=== PATIENT | male | born 1970 | race Caucasian/White ===

== ENCOUNTER → 2016-06-20 | Outpatient (CLI) | payer OTHER ==
[2016-06-20 10:59] LABS: ALT/SGPT 144 U/L (12-78); BLOOD UREA NITROGEN 12 mg/dl (7-18); BUN/CREATININE RATIO 11.1 (10-20); CARBON DIOXIDE 24 mmol/L (21-32); CHLORIDE 104 mmol/L (98-107); CHOLESTEROL 131 mg/dl (0-200); GLUCOSE 168 mg/dl (70-99); POTASSIUM 4.4 mmol/L (3.5-5.1); SODIUM 139 mmol/L (136-145); TRIGLYCERIDES 148 mg/dl (0-150); VERY LOW DENSITY LIPOPROT CALC 30 mg/dl
[2016-06-20 11:02] LABS: ALB/GLOB RATIO 1.3 (0.9-2); ALKALINE PHOSPHATASE 53 U/L (45-117); AST/SGOT 103 U/L (15-37); CALCIUM 9.8 mg/dl (8.5-10.1); CHOLESTEROL/HDL RATIO 3.4; HDL CHOLESTEROL 39 mg/dl; LDL CHOLESTEROL CALCULATED 62 mg/dl
== END | disposition home or self-care (01) ==
LOC: C.LABBC 07:43
PROVIDERS: ATTEND Family Medicine
DX: R74.0 Nonspecific elevation of levels of transaminase and lactic acid dehydrogenase [LDH] (principal); I10 Essential (primary) hypertension; E78.5 Hyperlipidemia, unspecified

== ENCOUNTER → 2016-09-02 | Outpatient (CLI) | payer OTHER ==
[2016-09-02 11:42] LABS: ALT/SGPT 68 U/L (12-78); AST/SGOT 39 U/L (15-37); BLOOD UREA NITROGEN 20 mg/dl (7-18); BUN/CREATININE RATIO 18.4 (10-20); CALCIUM 9.2 mg/dl (8.5-10.1); CARBON DIOXIDE 27 mmol/L (21-32); CHLORIDE 104 mmol/L (98-107); GLUCOSE 159 mg/dl (70-99); POTASSIUM 4.4 mmol/L (3.5-5.1); SODIUM 139 mmol/L (136-145)
[2016-09-02 11:44] LABS: ALB/GLOB RATIO 1.2 (0.9-2); ALKALINE PHOSPHATASE 49 U/L (45-117)
[2016-09-02 11:53] LABS: ESTIMATED AVERAGE GLUCOSE 160 mg/dl; HA1C FLAG Normal (Normal)
== END | disposition home or self-care (01) ==
LOC: C.LABBC 07:35
PROVIDERS: ATTEND Physician Assistant
DX: R74.0 Nonspecific elevation of levels of transaminase and lactic acid dehydrogenase [LDH] (principal); E11.29 Type 2 diabetes mellitus with other diabetic kidney complication

== ENCOUNTER → 2017-02-01 | Outpatient (CLI) | payer OTHER ==
[2017-02-01 15:43] LABS: ALT/SGPT 215 U/L (12-78); AST/SGOT 162 U/L (15-37); BLOOD UREA NITROGEN 12 mg/dl (7-18); BUN/CREATININE RATIO 12.4 (10-20); CALCIUM 8.9 mg/dl (8.5-10.1); CARBON DIOXIDE 26 mmol/L (21-32); CHLORIDE 101 mmol/L (98-107); CREATININE 0.94 mg/dl (0.60-1.40); GLUCOSE 228 mg/dl (70-99); POTASSIUM 4.6 mmol/L (3.5-5.1); SODIUM 133 mmol/L (136-145)
[2017-02-01 15:46] LABS: ALB/GLOB RATIO 1.1 (0.9-2); ALKALINE PHOSPHATASE 68 U/L (45-117); CHOLESTEROL 159 mg/dl (0-200); HDL CHOLESTEROL 32 mg/dl; LDL CHOLESTEROL CALCULATED 70 mg/dl; TRIGLYCERIDES 285 mg/dl (0-150); VERY LOW DENSITY LIPOPROT CALC 57 mg/dl
[2017-02-01 15:48] LABS: CREATININE RANDOM URINE 78.9 mg/dl
[2017-02-02 06:40] LABS: ESTIMATED AVERAGE GLUCOSE 206 mg/dl; HA1C FLAG Normal (Normal)
== END | disposition home or self-care (01) ==
LOC: C.LABBC 09:44
PROVIDERS: ATTEND Physician Assistant Medical
DX: Z00.00 Encounter for general adult medical examination without abnormal findings (principal); E11.29 Type 2 diabetes mellitus with other diabetic kidney complication; E78.5 Hyperlipidemia, unspecified; R06.09 Other forms of dyspnea

== ENCOUNTER → 2017-10-05 | Outpatient (CLI) | payer OTHER ==
[~2017-10-05] MED LIST: AMLO10TA3 PO; AMR2 PO; CEPH500C PO; GLC/500 PO; HYZ/50125 PO
[2017-10-05 11:05] LABS: ALBUMIN 4.1 gm/dl (3.4-5.0); ALKALINE PHOSPHATASE 92 U/L (45-117); ALT/SGPT 103 U/L (12-78); AST/SGOT 41 U/L (15-37); BLOOD UREA NITROGEN 10 mg/dl (7-18); CALCIUM 9.1 mg/dl (8.5-10.1); CARBON DIOXIDE 24 mmol/L (21-32); CREATININE 1.08 mg/dl (0.60-1.40); GLUCOSE 231 mg/dl (70-99); POTASSIUM 4.2 mmol/L (3.5-5.1); SODIUM 133 mmol/L (136-145); TOTAL PROTEIN 7.9 gm/dl (6.4-8.2)
[2017-10-05 11:07] LABS: HEMOGLOBIN A1C 8.7 % (4.5-5.6)
== END | disposition home or self-care (01) ==
LOC: C.LABBC 08:19
PROVIDERS: ATTEND Physician Assistant Medical
DX: Z00.00 Encounter for general adult medical examination without abnormal findings (principal); I10 Essential (primary) hypertension; R74.0 Nonspecific elevation of levels of transaminase and lactic acid dehydrogenase [LDH]; E11.29 Type 2 diabetes mellitus with other diabetic kidney complication

== ENCOUNTER 2018-10-13 09:13 | Inpatient (IN) ==
[2018-10-13] MEDS ORDERED: PIPERACILLIN/TAZOBACTAM 4.5 GM/120 ML BAG IV ONE (10:01)
[2018-10-13] MEDS ORDERED: PIPERACILL/TAZOBAC CONSULT ACTIVE PRN ×2 (10:01→14:19)
--- NOTE | 2018-10-13 10:05 | Emergency Department Note ---
Entered by Celina Parr acting as a scribe for Ming Mcclellan DO History of Present Illness General Chief complaint: Toe Injury/Pain Stated complaint: TOE INFECTED Source: patient History of Present Illness Onset (ago): week(s) 1 Location: foot (left second toe) Pain Consistency: + other (persistent) Maximum Pain Intensity: 2 Quality: + other (redness, drainage) Relieved By: not by other (wrapping in gauze) The patient is a 48 year old male with a history of diabetes and hypertension that is presenting to the Emergency Room with complaints of persistent pain in the left second toe that started around one week ago. The patient reports that he dropped something on his toe while wearing sneakers. He states that the toe turned red and started to drain around the toenail. He denies receiving any treatment for the toe or taking any antibiotics. He notes that he wrapped the toe in gauze. The patient states that he thought it was improving but notes that it worsened again. He reports that he previously dropped a meatman on his left great toe but denies any previous trauma to the second toe. He denies any known medication allergies. He notes that he is followed by Dr. Fajardo for his primary care. Home Medications Home Medications Medication Instructions Recorded Confirmed Type amlodipine 5 mg tablet 5 mg PO DAILY #90 tab 08/14/18 10/13/18 Rx blood sugar diagnostic strips #10 ea 08/15/18 10/13/18 History glimepiride 2 mg tablet 4 mg PO QAM #180 tab 08/15/18 10/13/18 History liraglutide 0.6 mg/0.1 mL (18 mg/3 1.2 mg SUBCUT DAILY #1 ml 08/15/18 10/13/18 H istory mL) subcutaneous pen injector metformin 500 mg tablet 1,000 mg PO BID #360 tab 08/15/18 10/13/18 History pen needle, diabetic 32 gauge x #10 ea 08/15/18 10/13/18 History " valsartan 320 1 tab PO DAILY #90 tab 08/15/18 10/13/18 History mg-hydrochlorothiazide 25 mg tablet metoprolol succinate ER 25 mg 25 mg PO DAILY #90 tab 10/09/18 10/13/18 Rx tablet,extended release 24 hr Allergies Allergy/AdvReac Type Severity Reaction Status Date / Time No Known Allergies Allergy Unverified 10/13/18 10:44 Past Med/Surg History Medical History 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) Snoring (Acute) Hepatic steatosis (Acute) Essential hypertension (Acute) Dyslipidemia (Acute) Family History Mother Emphysema of lung Diabetes Father Social History Preferred Language: Turkish Communication Ability: Effective Beliefs That Will Affect Care: None marital status: Single Current Living Situation: Family Current Living Situation Comment: lives with son current occupational status: employed Other Information That Helps Us Care for You: No Feels Safe at Home: Yes Safety Concerns: Feels Safe At This Time Smoking Status: Never smoker Hx Alcohol Use: Yes Alcohol type: beer Hx Substance Use: No Review of Systems See HPI for pertinent positives & negatives. and A total of 10 systems reviewed and were otherwise negative Physical Exam Vital Signs Vital Signs - 24 hr 10/13/18 09:18 10/13/18 11:15 Temperature 36.8 C Temperature Source Oral Sepsis Recent Fever Within 48 Hours No Sepsis Action Taken by Nursing No Action Required Pulse Rate 89 Pulse Rate [Apical] 78 Pulse Rhythm Regular Pulse Strength Normal Respiratory Rate 18 16 Respiratory Effort / Characteristics Non-Labored Respiratory Depth Normal Blood Pressure 163/102 H Blood Pressure [Left Arm] 120/86 Blood Pressure Mean 122 Blood Pressure Mean [Left Arm] 97 Blood Pressure Position Sitting Pulse Oximetry 99 97 Oxygen Delivery Method Room Air Room Air GENERAL: Patient is awake alert in no acute distress patient is resting comfort ably and showing no signs of anxiety EYES: The conjunctivae are clear. The pupils are round and reactive. EARS, NOSE, MOUTH AND THROAT: The nose is without any evidence of any deformity. Mucous membranes are moist tongue is midline NECK: The neck is nontender and supple. RESPIRATORY: Normal respiratory effort is noted there is no evidence of wheezing rhonchi or rales CARDIOVASCULAR: Regular rate and rhythm noted there no murmurs rubs or gallops normal S1 normal S2 GASTROINTESTINAL: The abdomen is soft. Bowel sounds are present in all quadrants. Abdomen is nontender MUSCULOSKELETAL/EXTREMITIES: There is no evidence of gross deformity full range of motion is noted in the hips and shoulders SKIN: There is symmetric swelling and erythema of the left second toe. It is malodorous. There is drainage over the lateral aspect to the nail. The nail is intact but appears loose. There is no open laceration. NEUROLOGIC: Patient is awake alert and oriented x3. Course 0957:The patient was evaluated in room B03B. A complete history and physical examination was performed. 1111: I updated the patient on his current lab and imaging results. He is resting comfortably at this time. He is amenable to the treatment plan. 1126: I discussed the patient's case with Dr. Romero [facility] [place], who will evaluate the patient for further management and care. 1130: Upon reevaluation, the patient is resting comfortably. I discussed laboratory and radiographic results with the patient. He verbalized agreement of the treatment plan. The patient will be evaluated for further management and care. Administered Medications Lactobacillus Acidophilus (Floranex) 4 tab PO TIDM [facility] Stop: 11/12/18 12:45 Last Admin: 10/13/18 14:03 Dose: 4 tab Documented by: [id number] Discontinued Medications Piperacillin Sod/Tazobactam Sod (Zosyn) 4.5 gm in 120 mls @ 240 mls/hr IV NOW ONE Stop: 10/13/18 10:30 Last Infusion: 10/13/18 11:01 Dose: 0 mls/hr Documented by: [id number] Admin: 10/13/18 10:27 Dose: 240 mls/hr Documented by: [id number] Sodium Chloride (Nss 1000ml) 1,000 mls @ 999 mls/hr IV .Q1H1M NESS Stop: 10/13/18 11:15 Last Infusion: 10/13/18 11:30 Dose: 0 mls/hr Documented by: [id number] Admin: 10/13/18 10:27 Dose: 999 mls/hr Documented by: [id number] Clindamycin Phosphate (Cleocin) 600 mg in 54 mls @ 100 mls/hr IV ONE ONE Stop: 10/13/18 11:41 Last Infusion: 10/13/18 12:18 Dose: 0 mls/hr Documented by: [id number] Admin: 10/13/18 11:44 Dose: 100 mls/hr Documented by: [id number] Vancomycin HCl 2,250 mg/ (Sodium Chloride) 545 mls @ 200 mls/hr IV NOW ONE Stop: 10/13/18 13:52 Last Admin: 10/13/18 14:04 Dose: 200 mls/hr Documented by: [id number] Medical Decision Making Differential Diagnosis Differential diagnosis: Etiologies such as cellulitis, abscess, MRSA infection, DVT, necrotizing fasciitis, dermatitis, drug eruption, as well as others were entertained. Medical Records Attestation: I reviewed the patient's medical records. Home Medications Current Medication List: was personally reviewed by me Laboratory Data Attestation: I reviewed the patient's lab results. Result diagrams: 10/13/18 10:15 10/13/18 10:15 Lab Results 10/13/18 10/13/18 10/13/18 Range/Units 10:15 10:15 10:15 WBC 9.74 (4.8-10.8) K/uL RBC 4.64 L (4.7-6.1) M/uL Hgb 15.3 (14.0-18.0) g/dL Hct 42.2 (42-52) % MCV 90.9 (80-100) fL MCH 33.0 (25-34) pg MCHC 36.3 H (32-36) g/dL RDW Std Deviation 40.6 (36.4-46.3) fL RDW Coeff of Ekta 12.3 (11.5-14.5) % Plt Count 221 (130-400) K/uL MPV 10.1 (7.4-10.4) fL Immature Gran % (Auto) 0.3 % Neut % (Auto) 78.9 % Lymph % (Auto) 9.2 % Pope % (Auto) 10.7 % Eos % (Auto) 0.6 % Baso % (Auto) 0.3 % Immature Gran # (Auto) 0.03 H (0.00-0.02) K/uL Neut # (Auto) 7.68 H (1.4-6.5) K/uL Lymph # (Auto) 0.90 L (1.2-3.4) K/uL Pope # (Auto) 1.04 H (0.11-0.59) K/uL Eos # (Auto) 0.06 (0-0.5) K/uL Baso # (Auto) 0.03 (0-0.2) K/uL ESR 42 H (0-14) mm/hr Sodium 134 L (136-145) mmol/L Potassium 4.5 (3.5-5.1) mmol/L Chloride 104 (98-107) mmol/L Carbon Dioxide 23 (21-32) mmol/L Anion Gap 7.0 (3-11) BUN 12 (7-18) mg/dl Creatinine 1.05 (0.6-1.4) mg/dl Est Cr Clr Drug Dosing 110.4 ml/min Est GFR ( Amer) 97.5 Est GFR (Non-Af Amer) 84.1 BUN/Creatinine Ratio 11.2 (10-20) Glucose 152 H (70-99) mg/dl Estimat Average Glucose mg/dl Hemoglobin A1c (4.5-5.6) % Calcium 9.4 (8.5-10.1) mg/dl Total Bilirubin 1.0 (0.2-1) mg/dl AST 28 (15-37) U/L ALT 56 (12-78) U/L Alkaline Phosphatase 57 (45-117) U/L C-Reactive Protein 11.00 H (0-0.29) mg/dl Total Protein 8.2 (6.4-8.2) gm/dl Albumin 3.9 (3.4-5.0) gm/dl Globulin 4.3 H (2.5-4.0) gm/dl Albumin/Globulin Ratio 0.9 (0.9-2) Procalcitonin (0-0.5) ng/ml 10/13/18 10/13/18 Range/Units 10:15 10:15 WBC (4.8-10.8) K/uL RBC (4.7-6.1) M/uL Hgb (14.0-18.0) g/dL Hct (42-52) % MCV (80-100) fL MCH (25-34) pg MCHC (32-36) g/dL RDW Std Deviation (36.4-46.3) fL RDW Coeff of Ekta (11.5-14.5) % Plt Count (130-400) K/uL MPV (7.4-10.4) fL Immature Gran % (Auto) % Neut % (Auto) % Lymph % (Auto) % Pope % (Auto) % Eos % (Auto) % Baso % (Auto) % Immature Gran # (Auto) (0.00-0.02) K/uL Neut # (Auto) (1.4-6.5) K/uL Lymph # (Auto) (1.2-3.4) K/uL Pope # (Auto) (0.11-0.59) K/uL Eos # (Auto) (0-0.5) K/uL Baso # (Auto) (0-0.2) K/uL ESR (0-14) mm/hr Sodium (136-145) mmol/L Potassium (3.5-5.1) mmol/L Chloride (98-107) mmol/L Carbon Dioxide (21-32) mmol/L Anion Gap (3-11) BUN (7-18) mg/dl Creatinine (0.6-1.4) mg/dl Est Cr Clr Drug Dosing ml/min Est GFR ( Amer) Est GFR (Non-Af Amer) BUN/Creatinine Ratio (10-20) Glucose (70-99) mg/dl Estimat Average Glucose 114 mg/dl Hemoglobin A1c 5.6 (4.5-5.6) % Calcium (8.5-10.1) mg/dl Total Bilirubin (0.2-1) mg/dl AST (15-37) U/L ALT (12-78) U/L Alkaline Phosphatase (45-117) U/L C-Reactive Protein (0-0.29) mg/dl Total Protein (6.4-8.2) gm/dl Albumin (3.4-5.0) gm/dl Globulin (2.5-4.0) gm/dl Albumin/Globulin Ratio (0.9-2) Procalcitonin 0.05 (0-0.5) ng/ml Imaging Data Radiologist's Impression: Radiology results as stated below per my review and the radiologist's interpretation: XR foot LT min 3V routine CLINICAL HISTORY: left 2nd toe injury COMPARISON: None FINDINGS: There is indistinctness and irregularity of the cortex of the distal phalanx of the left second toe. Soft tissue swelling is present. There is possible soft tissue gas due to a laceration. No radiopaque foreign bodies are identified. Tarsometatarsal joints are intact. No additional fractures are identified. IMPRESSION: 1. Cortical irregularity suggestive of a minimally displaced fracture of the distal phalanx of the left second toe. 2. Soft tissue swelling and possible soft tissue gas within the left second toe. Electronically signed by: Aubrey Hernandez M.D. 10/13/2018 10:29 AM Blood Pressure Blood Pressure Findings: Elevated blood pressure Blood Pressure Disposition: Referred to patients primary care provider MDM Narrative The patient is a 48-year-old male who presented to the emergency department for an evaluation of left foot pain. The patient had injury to his left second toe which appears to have developed a secondary infection. The patient has a history of diabetes. The patient's presentation appears to be consistent with a diabetic foot infection. Gas was noted in the tissue in the left second toe. I was very concerned this could represent a very significant infection. He was started on IV antibiotics initially to cover these organisms but when gas was noted in the tissue other antibiotics were added to cover necrotizing fasciitis and gas gangrene. I discussed patient's laboratory and radiographic studies with him. I also discussed this case with the on-call [facility] hospitalist group. They have agreed to evaluate the patient in the emergency department for further management disposition. Impression & Plan Infected abrasion of second toe of left foot, Gas gangrene Discharge Plan Visit Data *Final* Discharge Date/Time: 10/13/18 12:10 Chief Complaint: Toe Injury/Pain Stated Complaint: TOE INFECTED ED Provider: Ming Mcclellan Discharge Problem: Infected abrasion of second toe of left foot, Gas gangrene Patient Disposition: Admitted As Inpatient Discharge Instructions Interventions: ED Discharge Assessment Last Done: 10/13/18 12:10 Discharge Problem: Infected abrasion of second toe of left foot Qualifiers: Encounter type: initial encounter Qualified Code(s): S90.415A - Abrasion, left lesser toe(s), initial encounter The scribe's documentation has been prepared under my direction and personally reviewed by me in its entirety. I confirm that the note above accurately reflects all work, treatment, procedures, and medical decision making performed by me.
[2018-10-13] MEDS ORDERED: SODIUM CHLORIDE 0.9% 1000ML 1,000 ML IV SCH (10:15)
[2018-10-13 10:28] LABS: Basophils # (auto) 0.03 K/uL (0-0.2); Basophils % (auto) 0.3 %; Eosinophils # (auto) 0.06 K/uL (0-0.5); Eosinophils % (auto) 0.6 %; Hematocrit (blood only) 42.2 % (42-52); Hemoglobin 15.3 g/dL (14.0-18.0); Immature Granulocytes # (auto) 0.03 K/uL (0.00-0.02); Immature Granulocytes % (auto) 0.3 %; Lymphocytes % (auto) 9.2 %; Mean Corpuscular Hgb Conc 36.3 g/dL (32-36); Mean Corpuscular Volume 90.9 fL (80-100); Mean Platelet Volume 10.1 fL (7.4-10.4); Monocytes # (auto) 1.04 K/uL (0.11-0.59); Monocytes % (auto) 10.7 %; Neutrophils # (auto) 7.68 K/uL (1.4-6.5); Neutrophils % (auto) 78.9 %; Platelet Count 221 K/uL (130-400); RDW Coefficient of Variation 12.3 % (11.5-14.5); RDW Standard Deviation 40.6 fL (36.4-46.3); Red Blood Count 4.64 M/uL (4.7-6.1); White Blood Count 9.74 K/uL (4.8-10.8)
--- NOTE | 2018-10-13 10:31 | XRay Report ---
XR foot LT min 3V routine CLINICAL HISTORY: left 2nd toe injury COMPARISON: None FINDINGS: There is indistinctness and irregularity of the cortex of the distal phalanx of the left s econd toe. Soft tissue swelling is present. There is possible soft tissue gas due to a laceration. No radiopaque foreign bodies are identified. Tarsometatarsal joints are intact. No additional fractures are identified. IMPRESSION: 1. Cortical irregularity suggestive of a minimally displaced fracture of the distal phalanx of the le ft second toe. 2. Soft tissue swelling and possible soft tissue gas within the left second toe. Electronically signed by: Aubrey Hernandez M.D. 10/13/2018 10:29 AM
[2018-10-13 10:47] LABS: Albumin Level 3.9 gm/dl (3.4-5.0); BUN Creatinine Ratio 11.2 (10-20); Calcium 9.4 mg/dl (8.5-10.1); Creatinine Clr Calc Pharmacy 110.4 ml/min; Est GFR (African American) 97.5; Est GFR (Non-African American) 84.1; Potassium 4.5 mmol/L (3.5-5.1)
[2018-10-13 10:50] LABS: Albumin Globulin Ratio 0.9 (0.9-2); Globulin 4.3 gm/dl (2.5-4.0); Total Protein 8.2 gm/dl (6.4-8.2)
[2018-10-13] MEDS ORDERED: VANCOMYCIN CONSULT ACTIVE PRN (11:09)
[2018-10-13] MEDS ORDERED: VANCOMYCIN HCL 2,250 MG in SODIUM CHLORIDE 0.9% 500 ML IV ONE (11:09)
[2018-10-13] MEDS ORDERED: CLINDAMYCIN 600 MG/54 ML BAG IV ONE (11:09)
[2018-10-13] MEDS ORDERED: ALUMINUM/MAGNESIUM SUSP 30 ML UDC PO PRN (12:46)
[2018-10-13] MEDS ORDERED: ACETAMINOPHEN 325 MG TAB PO PRN (12:46)
[2018-10-13] MEDS ORDERED: ONDANSETRON INJ 2 MG/ML 2 ML VIAL IV PRN (12:46)
[2018-10-13] MEDS ORDERED: MAGNESIUM HYDROXIDE SUSP 30 ML UDC PO PRN (12:46)
[2018-10-13] MEDS ORDERED: POLYETHYLENE (MIRALAX) 17 GM PACK PO PRN (12:46)
[2018-10-13 13:38] LABS: Estimated Average Glucose 114 mg/dl; Hemoglobin A1C 5.6 % (4.5-5.6)
[2018-10-13] MEDS: LACTOBACILLUS ACIDOPHILUS (FLORANEX) TAB PO SCH ×2 (14:03→17:23)
--- NOTE | 2018-10-13 14:11 | History & Physical Report ---
Date of Service October 13, 2018 Assessment & Plan (1) Infected abrasion of second toe of left foot: Mr. Lofton is a 48yo male with a PMHx significant for DMII and HTN who presents today for a nonhealing left second toe. States about a week ago he dropped an instrument on his foot and has noticed the pain, redness, and swelling with drainage since then. Left toe fracture/soft tissue gas -Concern for osteomyelytis vs. necrotizing fasciitis or gas gangrene -Likely caused from infected injury, compounded by pt's diabetic status and excessive use of beer which can also elevate sugars and contribute to poor wound healing. -XR of toe--with acute fracture, soft tissue swelling and gas noted. -ortho consult placed -continue Zosyn. Will d/c clindamycin and vancomycin- less likely MRSA given no hx of recent hosp, location of lesion, etc. -will await results of wound culture done by ED. Alcohol abuse -Given pt's alcohol use, mild concern for withdrawal. however, pt with hx that he has abstained from drinking recently for 30days+ without symptoms. -counseled on withdrawal symptoms and to notify staff should they start. 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 -liver enzymes reassuring, currently normal and has been on downtrend. -will continue to trend. HTN -continue home meds DMII -HgbA1c of 5.6 -Hold home meds -ISS FEN/GI: on banana bag, Diabetic diet. CODE STATUS: Full code DVT prophylaxis: Lovenox SQ Dispo: med/surg History of Present Illness Primary Care Provider: DANICA Granados Mr. Lofton is a 48yo with a PMhx significant for DMII and HTN who presents today for a nonhealing left second toe. States about a week ago he dropped an instrument on his foot and has noticed the pain, redness, and swelling with drainage since then. Has been taking OTC Aleve for pain relief. Denies ever having associated fevers, chills or night sweats. States the drainage has been bloody or clear to yellow. States that it is easier to wear shoes. Normally has numbness in his feet due to his DM, but has not noted any tingling. Has been able to wear shoes and ambulate. PMHX: DMII, HTN PSH: Surgery on his bicep tendon 10years ago Fam Hx: Mother 89, alive DMII. Dad, passed, CV issues. Allergies: NKDA Social Hx: Drinks 2 cases of 24pack 12oz beer every week. States he quit drinking around this time last year but has since restarted. Last drink was last night. Quit smoking about 20yrs ago after smoking 1ppd for about 10 years. No recreational drug use. Lives at home with 22yo son in 2 story home. His bedroom is on the first floor however. Works construction. ED Course: XR of foot shows fracture with soft tissue edema and gas. Started on Zosyn, Vancomycin and Clindamycin in the ED out of concern for gas gangrene or necrotizing fasciitis. Allergies Allergy/AdvReac Type Severity Reaction Status Date / Time No Known Allergies Allergy Unverified 10/13/18 10:44 Home Medications Home Medications Medication Instructions Recorded Confirmed Type amlodipine 5 mg tablet 5 mg PO DAILY #90 tab 08/14/18 10/13/18 Rx blood sugar diagnostic strips #10 ea 08/15/18 10/13/18 History glimepiride 2 mg tablet 4 mg PO QAM #180 tab 08/15/18 10/13/18 History liraglutide 0.6 mg/0.1 mL (18 mg/3 1.2 mg SUBCUT DAILY #1 ml 08/15/18 10/13/18 History mL) subcutaneous pen injector metformin 500 mg tablet 1,000 mg PO BID #360 tab 08/15/18 10/13/18 History pen needle, diabetic 32 gauge x #10 ea 08/15/18 10/13/18 History " valsartan 320 1 tab PO DAILY #90 tab 08/15/18 10/13/18 History mg-hydrochlorothiazide 25 mg tablet metoprolol succinate ER 25 mg 25 mg PO DAILY #90 tab 10/09/18 10/13/18 Rx tablet,extended release 24 hr Past Med/Surg History Medical History 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) Snoring (Acute) Hepatic steatosis (Acute) Essential hypertension (Acute) Dyslipidemia (Acute) Family History Mother Emphysema of lung Diabetes Father Social History Preferred Language: Bulgarian Communication Ability: Effective Beliefs That Will Affect Care: None marital status: Single Current Living Situation: Family Current Living Situation Comment: lives with son current occupational status: employed Other Information That Helps Us Care for You: No Feels Safe at Home: Yes Safety Concerns: Feels Safe At This Time Smoking Status: Never smoker Hx Alcohol Use: Yes Alcohol type: beer Hx Substance Use: No Review of Systems Constitutional: no fever, no chills and no sweats Eyes: no worsening vision Ear, Nose, Mouth, Throat: no ear pain and no sore throat Respiratory: no cough and no dyspnea Cardiovascular: no chest pain and no palpitations Gastrointestinal: no abdominal pain, no nausea, no vomiting, no constipation and no diarrhea/loose stools Genitourinary: no dysuria Neurologic: + numbness (in feet); no tingling and no headache(s) Physical Exam Constitutional: WD/WN, vitals as above Eyes: PERRL, conjunctivae normal, anicteric sclerae ENMT: external ear and nose normal, oropharynx normal Respiratory: normal respiratory effort, lungs clear to auscultation Cardiovascular: RRR, no murmur, no edema Extremities: no calf tenderness Gastrointestinal (Abdomen): normal bowel sounds, soft, nontender, no hepatosplenomegaly Musculoskeletal: Extremities: + lower extremity abnormal to inspection (Leftsecond toe red, swollen, tender to palpation with visible drainage.) Right (on right heel, medially, is a burgeoning lesion, red, atrophic but not ulcerated yet.) Results & Data Vital Signs (Past 12 Hours) Vital Signs Temp Pulse Pulse Resp BP BP Pulse Ox 10/13/18 12:52 36.8 C 76 18 120/80 97 10/13/18 11:15 78 16 120/86 97 10/13/18 09:18 36.8 C 89 18 163/102 H 99 Laboratory Results Laboratory Results - last 24 hr 10/13/18 10/13/18 10/13/18 10:15 10:15 10:15 WBC 9.74 RBC 4.64 L Hgb 15.3 Hct 42.2 MCV 90.9 MCH 33.0 MCHC 36.3 H RDW Std Deviation 40.6 RDW Coeff of Ekta 12.3 Plt Count 221 MPV 10.1 Immature Gran % (Auto) 0.3 Neut % (Auto) 78.9 Lymph % (Auto) 9.2 Harmon % (Auto) 10.7 Eos % (Auto) 0.6 Baso % (Auto) 0.3 Immature Gran # (Auto) 0.03 H Neut # (Auto) 7.68 H Lymph # (Auto) 0.90 L Harmon # (Auto) 1.04 H Eos # (Auto) 0.06 Baso # (Auto) 0.03 ESR 42 H Sodium 134 L Potassium 4.5 Chloride 104 Carbon Dioxide 23 Anion Gap 7.0 BUN 12 Creatinine 1.05 Est Cr Clr Drug Dosing 110.4 Est GFR ( Amer) 97.5 Est GFR (Non-Af Amer) 84.1 BUN/Creatinine Ratio 11.2 Glucose 152 H POC Glucose Estimat Average Glucose Hemoglobin A1c Calcium 9.4 Total Bilirubin 1.0 AST 28 ALT 56 Alkaline Phosphatase 57 C-Reactive Protein 11.00 H Total Protein 8.2 Albumin 3.9 Globulin 4.3 H Albumin/Globulin Ratio 0.9 Procalcitonin 10/13/18 10/13/18 10/13/18 10:15 10:15 13:13 WBC RBC Hgb Hct MCV MCH MCHC RDW Std Deviation RDW Coeff of Ekta Plt Count MPV Immature Gran % (Auto) Neut % (Auto) Lymph % (Auto) Harmon % (Auto) Eos % (Auto) Baso % (Auto) Immature Gran # (Auto) Neut # (Auto) Lymph # (Auto) Harmon # (Auto) Eos # (Auto) Baso # (Auto) ESR Sodium Potassium Chloride Carbon Dioxide Anion Gap BUN Creatinine Est Cr Clr Drug Dosing Est GFR ( Amer) Est GFR (Non-Af Amer) BUN/Creatinine Ratio Glucose POC Glucose 118 H Estimat Average Glucose 114 Hemoglobin A1c 5.6 Calcium Total Bilirubin AST ALT Alkaline Phosphatase C-Reactive Protein Total Protein Albumin Globulin Albumin/Globulin Ratio Procalcitonin 0.05 Medications Administered Home Medications amlodipine 5 mg tablet 5 mg PO DAILY #90 tab 08/14/18 [Rx Confirmed 10/13/18] blood sugar diagnostic strips #10 ea 08/15/18 [History Confirmed 10/13/18] glimepiride 2 mg tablet 4 mg PO QAM #180 tab 08/15/18 [History Confirmed 10/13/18] liraglutide 0.6 mg/0.1 mL (18 mg/3 mL) subcutaneous pen injector 1.2 mg SUBCUT DAILY #1 ml 08/15/18 [History Confirmed 10/13/18] metformin 500 mg tablet 1,000 mg PO BID #360 tab 08/15/18 [History Confirmed 10/13/18] pen needle, diabetic 32 gauge x 5/32" #10 ea 08/15/18 [History Confirmed 10/13/18] valsartan 320 mg-hydrochlorothiazide 25 mg tablet 1 tab PO DAILY #90 tab 08/15/18 [History Confirmed 10/13/18] metoprolol succinate ER 25 mg tablet,extended release 24 hr 25 mg PO DAILY #90 tab 10/09/18 [Rx Confirmed 10/13/18] Active Medications Acetaminophen (Tylenol) 650 mg PO Q4H PRN PRN Reason: pain/fever Stop: 11/12/18 12:45 Al Hydrox/Mg Hydrox/Simethicone (Maalox) 30 ml PO Q6H PRN PRN Reason: Dyspepsia Stop: 11/12/18 12:45 Amlodipine Besylate (Norvasc) 5 mg PO DAILY [facility] Stop: 11/13/18 08:59 Enoxaparin Sodium (Lovenox) 40 mg SQ Q24H [facility] Stop: 11/12/18 14:59 Glimepiride (Amaryl) 4 mg PO QAM [facility] Stop: 11/13/18 08:59 Insulin Aspart (Novolog Flexpen) 0 units SC ACHS [facility] Stop: 11/12/18 16:29 Lactobacillus Acidophilus (Floranex) 4 tab PO TIDM [facility] Stop: 11/12/18 12:45 Last Admin: 10/13/18 14:03 Dose: 4 tab Documented by: Magnesium Hydroxide (Milk Of Magnesia) 30 ml PO Q6H PRN PRN Reason: Constipation Stop: 11/12/18 12:45 Metformin HCl (Glucophage) 1,000 mg PO BID [facility] Stop: 11/12/18 20:59 Metoprolol Succinate (Toprol Xl) 25 mg PO DAILY [facility] Stop: 11/13/18 08:59 Miscellaneous Information (Consult) 1 ea N/A UD PRN PRN Reason: Consult Stop: 11/12/18 10:00 Miscellaneous Information (Consult) 1 ea N/A UD PRN PRN Reason: Consult Stop: 11/12/18 11:08 Non-Formulary Medication (Liraglutide) 1.2 mg SQ DAILY [facility] Stop: 11/13/18 08:59 Non-Formulary Medication (Valsartan-Hydrochlorothiazide) 1 tab PO DAILY [facility] Stop: 11/13/18 08:59 Ondansetron HCl (Zofran) 4 mg IV Q6H PRN PRN Reason: Nausea Stop: 11/12/18 12:45 Polyethylene Glycol (Miralax Powder Packet) 17 gm PO DAILY PRN PRN Reason: Constipation Stop: 11/12/18 12:45 Code Status & VTE Plan VTE Prophylaxis Plan VTE Prophylaxis will be ordered: Yes Supervising Physician Co-Signing Physician Notes I personally examined the patient and verified all verduzco points of history and exam, discussed case, and agree with decision making with Dr Payan. Dropped heavy object on foot last week, toe hurting, now swollen and red with pus drainage. He seems at least willing to cut back on his drinking. He notes never having had a withdrawal syndrome. Vitals noted, in general he is awake and alert pleasant no distress. Second toe is bright red circumferentially, somewhat warm. Erythema does not appear to track up the foot. Foot cellulitiscellulitis of his toe appears to be posttraumatic, with the laceration being the portal of entry, but with the open fracture underneath, we have to assume possible osteomyelitis until proven otherwise. Orthopedics consult, Zosyn, supportive care, follow closely. Type 2 diabetescheck A1c, follow sugars. Continue management. Alcohol abusehe seems open to the idea of at least cutting back if not quitting. He has not had any prior withdrawal syndromes, and while he drinks extremely heavily overall, it seems to be more of sporadic binges 3 to 4 days a weeks and on a truly daily basis. Overall it seems he is probably mild to may be at the worst moderate risk for withdrawal, but obviously will follow him closely. Thiamine and folate. DVT prophylaxisLovenox. Otherwise as above PG Care Time/CCT Total # of Minutes Spent Total Time Spent with Patient: Total time spent is greater than 50% in coordination of care (as documented) at patient's floor/unit and/or counseling patient: (1) Infected abrasion of second toe of left foot Encounter type: initial encounter Qualified Code(s): S90.415A - Abrasion, left lesser toe(s), initial encounter; L08.9 - Local infection of the skin and subcutaneous tissue, unspecified
[2018-10-13 14:49] LABS: INR 1.1 (0.9-1.1); Prothrombin Time 11.1 Seconds (9.0-12.0)
[2018-10-13] MEDS ORDERED: MULTI-VITAMIN INFUSION 10 ML, THIAMINE HCL 100 MG, FOLIC ACID 1 MG in SODIUM CHLORIDE 0... IV SCH (15:45)
--- NOTE | 2018-10-13 16:40 | Consultation Report ---
DATE OF CONSULTATION: 10/13/2018 PERTINENT HISTORY: This is a 48-year-old gentleman seen at request of Dr. Clark Romero and DANICA Desai. This 48-year-old gentleman is seen at bedside with pain and swelling of his left second toe. He noted approximately 2 weeks ago, he dropped approximately 200 pound lift forks from a forklift several inches onto his left second toe. He had immediate pain and swelling. He managed this conservatively for approximately a week and then this past Monday noted increased pain, swelling, redness and some scant drainage. He then presented to [facility] ER for evaluation today. He was then seen by the hospitalist service admitted to the hospital for IV Zosyn. Had no fevers or chills, no weakness and no known increase in his blood sugars. Radiographs demonstrate a minimally displaced fracture of the distal phalanx of the left second toe. Question regarding a local air in the tissues adjacent to the area of the distal second toe. PAST MEDICAL HISTORY: Diabetes mellitus type 2, alcohol abuse, hypertension. PAST SURGICAL HISTORY: Bicep tendon repair 10 years ago. ALLERGIES: No known drug allergies. MEDICATIONS: Please note the medications in the medical record. SOCIAL HISTORY: He drinks approximately 2 cases of beer per week. He uses smokeless tobacco. He stopped smoking cigarettes 1 pack a day approximately 20 years ago. He is . He works for a construction company. PHYSICAL EXAMINATION: GENERAL: This is a 48-year-old gentleman lying supine in his hospital room bed. He is alert and oriented x3. Speech clear and fluent. Affect is appropriate. EXTREMITIES: Examination of the left lower extremity demonstrates maceration of the distal aspect of the left second toe with erythema and local edema of the second toe. There is no streaking proximal to the second toe. Some minor edema of the forefoot. Dorsalis pedis and posterior tibial pulses are 2/4 bilaterally. Sensation is intact to bilateral feet. He has normal hair growth bilaterally. Tenderness at the distal phalanx and diffusely over the left second toe. The nail and nail plate has partially disrupted. This was carefully debrided and removed at bedside. There is scant amount of purulent drainage, after removal of the nail plate which then decompressed the local abscess. Some scant bleeding was noted. Dressing was changed and tolerated it well. There was some limitation in range of motion due to pain and swelling but within normal limits due to the injury. LABORATORIES AND RADIOGRAPHS: Reviewed, noting a lucency at the distal phalanx of the left second toe without significant displacement. A question regarding local air in the tissues of the distal phalanx. IMPRESSION: 1. Left second toe crush injury. 2. Left second toe distal phalanx fracture. 3. Cellulitis of focal abscess, left distal second toe. RECOMMENDATION: Continue IV Zosyn, daily dressing changes. We will reassess with you tomorrow. Continue with nonoperative management at this time after a nail plate was removed and abscess was decompressed at bedside today. Counselled the patient regarding tobacco cessation and alcohol cessation. He is a good candidate for some alcohol counseling while here at the hospital. He states that he is interested in stopping as he knows that it is concern for his overall general health and has a negative impact on his diabetes. Thank you for the opportunity to consult in care of this patient. BENITEZ
[2018-10-13] MEDS: ENOXAPARIN INJ 40 MG/0.4 ML SYR SQ SCH (17:18)
[2018-10-13] MEDS: INSULIN ASPART 100 UNITS/ML 3 ML PEN SC SCH ×2 (17:47→21:33)
[2018-10-13] MEDS: PIPERACILLIN/TAZOBACTAM 3.375 GM in DEXTROSE 5% 100 ML IV SCH (18:42)
[2018-10-13] MEDS ORDERED: VANCOMYCIN HCL 1,500 MG in SODIUM CHLORIDE 0.9% 500 ML IV SCH (20:00)
[2018-10-13] MEDS ORDERED: METFORMIN HCL 500 MG TAB PO SCH (21:00)
[2018-10-14] MEDS: PIPERACILLIN/TAZOBACTAM 3.375 GM in DEXTROSE 5% 100 ML IV SCH ×3 (02:23→18:36)
[2018-10-14 07:09] LABS: Basophils # (auto) 0.04 K/uL (0-0.2); Basophils % (auto) 0.6 %; Eosinophils # (auto) 0.13 K/uL (0-0.5); Eosinophils % (auto) 1.8 %; Hematocrit (blood only) 39.7 % (42-52); Hemoglobin 13.7 g/dL (14.0-18.0); Immature Granulocytes # (auto) 0.01 K/uL (0.00-0.02); Immature Granulocytes % (auto) 0.1 %; Lymphocytes # (auto) 0.99 K/uL (1.2-3.4); Lymphocytes % (auto) 13.7 %; Mean Corpuscular Hgb Conc 34.5 g/dL (32-36); Mean Corpuscular Volume 92.3 fL (80-100); Mean Platelet Volume 9.8 fL (7.4-10.4); Monocytes # (auto) 0.72 K/uL (0.11-0.59); Neutrophils # (auto) 5.33 K/uL (1.4-6.5); Neutrophils % (auto) 73.8 %; Platelet Count 203 K/uL (130-400); RDW Coefficient of Variation 12.3 % (11.5-14.5); RDW Standard Deviation 41.3 fL (36.4-46.3); White Blood Count 7.22 K/uL (4.8-10.8)
[2018-10-14 07:20] LABS: INR 1.1 (0.9-1.1)
[2018-10-14 07:47] LABS: Albumin Level 3.2 gm/dl (3.4-5.0); BUN Creatinine Ratio 11.6 (10-20); Calcium 8.8 mg/dl (8.5-10.1); Creatinine Clr Calc Pharmacy 101.7 ml/min; Est GFR (African American) 88.3; Est GFR (Non-African American) 76.2; Potassium 4.2 mmol/L (3.5-5.1)
[2018-10-14 07:57] LABS: Albumin Globulin Ratio 0.9 (0.9-2); Bilirubin,Total 1.1 mg/dl (0.2-1); Globulin 3.5 gm/dl (2.5-4.0); Total Protein 6.7 gm/dl (6.4-8.2)
[2018-10-14] MEDS ORDERED: VALSARTAN/HCTZ 160/12.5MG TAB PO SCH (09:00)
[2018-10-14] MEDS ORDERED: GLIMEPIRIDE 2 MG TAB PO SCH (09:00)
[2018-10-14] MEDS ORDERED: NON-FORMULARY MEDICATION (Liraglutide 1.2 MG) SQ SCH (09:00)
[2018-10-14] MEDS ORDERED: CARBOHYDRATES FOR HYPOGLYCEMIA PO PRN (09:15)
[2018-10-14] MEDS ORDERED: GLUCOSE 10 TABS/TUBE PO PRN (09:15)
[2018-10-14] MEDS ORDERED: GLUCAGON FOR INJ 1 MG VIAL IM PRN (09:15)
[2018-10-14] MEDS ORDERED: GLUCOSE 40% GEL 15 GM TUBE PO PRN (09:15)
[2018-10-14] MEDS ORDERED: DEXTROSE 50% 50 ML SYRINGE IV PRN (09:15)
[2018-10-14] MEDS: INSULIN ASPART 100 UNITS/ML 3 ML PEN SC SCH ×4 (09:20→21:47)
[2018-10-14] MEDS: LACTOBACILLUS ACIDOPHILUS (FLORANEX) TAB PO SCH ×3 (09:20→16:15)
[2018-10-14] MEDS: METOPROLOL SUCC 25MG EXT REL TAB PO SCH (09:21)
[2018-10-14] MEDS: AMLODIPINE BESYLATE 5 MG TAB PO SCH (09:21)
[2018-10-14] MEDS: VALSARTAN 80 MG TAB PO SCH (09:25)
[2018-10-14] MEDS: hydroCHLOROthiazide 25 MG TAB PO SCH (09:25)
[2018-10-14] MEDS ORDERED: VANCOMYCIN TROUGH ONE (11:30)
--- NOTE | 2018-10-14 11:51 | Orthopedic Progress Note ---
Date of Service October 14, 2018 Assessment & Plan (1) Infected abrasion of second toe of left foot: Left second toe cellulitis. Left second toe infected abrasion. Left second toe distal phalanx fracture. Crush injury left second toe. Continue IV Zosyn. Continue daily dressing changes. Allow regular diet today. N.p.o. after midnight. Will reassess tomorrow. I explained that if he continues to have purulent discharge from second toe he will require irrigation debridement with possible partial amputation of the left second toe. Present on Admission?: Yes Subjective Patient sitting supine in his hospital room bed. No acute distress. No new complaints. States that his left second toe is feeling better today. Left forefoot less swollen and less painful. No fevers or chills no shortness of breath or chest pain. Physical Exam Physical Exam: Left foot exam demonstrates diminished edema and erythema of the left forefoot. Left second toe edema and erythema improved. Evolving skin slough over the dorsum of the second toe. Nail plate has been removed as per previous note. Scant amount of purulent discharge noted distal second toe. Neuropathy persists bilateral lower extremities. Cap refill unchanged. Results & Data Vital Signs (Past 12 Hours) Vital Signs Temp Pulse Resp BP Pulse Ox 10/14/18 07:29 36.9 C 66 16 130/87 96 (1) Infected abrasion of second toe of left foot Encounter type: initial encounter Qualified Code(s): S90.415A - Abrasion, l eft lesser toe(s), initial encounter; L08.9 - Local infection of the skin and subcutaneous tissue, unspecified
--- NOTE | 2018-10-14 12:03 | Family Medicine Progress Note ---
Date of Service October 14, 2018 Assessment & Plan (1) Infected abrasion of second toe of left foot: Mr. Lofton is a 48yo male with a PMHx significant for DMII and HTN who presents today for a nonhealing left second toe. States about a week ago he dropped an instrument on his foot and has noticed the pain, redness, and swelling with drainage since then. Left toe fracture/soft tissue gas -Concern for osteomyelitis vs. necrotizing fasciitis or gas gangrene -Likely caused from infected injury, compounded by pt's diabetic status and excessive use of beer which can also elevate sugars and contribute to poor wound healing. -XR of toe--with acute fracture, soft tissue swelling and gas noted. -ortho consult placed- appreciate recs. Toe abscess was incised and drained after nail plate removed. Continued drainage 10/14, advised to continue Zosyn with plan for operative management should drainage continue on 10/15. -continue Zosyn. Will d/c clindamycin and vancomycin- less likely MRSA given no hx of recent hosp, location of lesion, etc. - wound culture- grew staph aureus. -arterial dopplers ordered to confirm suspected PVD. Alcohol abuse -Given pt's level of alcohol use and Hx obtained, mild concern for withdrawal. Pt states that he has abstained from drinking recently for 30days+ without symptoms. -counseled on withdrawal symptoms and to notify staff should they start. -will start on banana bag daily, folate WNL, thiamine level pending. -Will addiction treatment counselor on need to quit. -liver enzymes reassuring, currently normal and has been on downtrend. -will continue to trend. HTN -continue home meds DMII -HgbA1c of 5.6 -Hold home meds -ISS FEN/GI: on banana bag, Diabetic diet. CODE STATUS: Full code DVT prophylaxis: Lovenox SQ Dispo: med/surg Supervising Physician Co-Signing Physician Notes I personally examined the patient and verified all verduzco points of history and exam, discussed case, and agree with decision making with Dr Payan. Feeling okay. No new complaints. No withdrawal signs or symptoms whatsoever. Orthopedics input appreciated. Vitals noted, in general he is awake and alert pleasant no distress. HEENT normocephalic atraumatic mucous membranes moist. Breathing unlabored no accessory muscle use good effort. No focal neuro deficits. Foot cellulitiscellulitis of his toe appears to be posttraumatic, with the laceration being the portal of entry, but with the open fracture underneath, we have to assume possible osteomyelitis until proven otherwise. Appreciate orthopedics input. Continue Zosyn. Watchful waiting. Type 2 [id number] noted. Continue to follow sugars, continue current management. Alcohol abusecontinue to follow, but appears he will likely not show any real withdrawal. Continues to be open to the idea of cutting back or quitting. DVT prophylaxisLovenox. Otherwise as above Subjective Pt awake and alert this AM in no acute distress. States he has minimal pain. Denies sweats, shakes, palpitations. Denies fevers, chills, night sweats. Also denies chest pain, SOB, abd pain, diarrhea/constipation. Review of Systems Review of Systems: All systems reviewed & are unremarkable except as noted in HPI & below Physical Exam Physical Exam: General: Alert, oriented. No acute distress. HEENT: NC/AT, PERRLA, EOMI, oropharynx moist. Chest: Nontender to palpation. CV: RRR, Normal s1, s2. No murmurs appreciated Resp: Breath sounds clear bilaterally, no increased effort of breathing. No crackles/rhonchi/rales. Abdomen: Soft, nontender, nondistended. No guarding. No organomegaly appreciated. Extremities:Left second toe bandaged this AM. No visible drainage or blood on bandage. Results & Data Vital Signs (Past 12 Hours) Vital Signs Temp Pulse Resp BP Pulse Ox 10/14/18 07:29 36.9 C 66 16 130/87 96 Laboratory Results Laboratory Results - last 24 hr 10/13/18 10/13/18 10/13/18 10:15 13:13 14:15 WBC RBC Hgb Hct MCV MCH MCHC RDW Std Deviation RDW Coeff of Ekta Plt Count MPV Immature Gran % (Auto) Neut % (Auto) Lymph % (Auto) [place] % (Auto) Eos % (Auto) Baso % (Auto) Immature Gran # (Auto) Neut # (Auto) Lymph # (Auto) [place] # (Auto) Eos # (Auto) Baso # (Auto) PT 11.1 INR 1.1 Sodium Potassium Chloride Carbon Dioxide Anion Gap BUN Creatinine Est Cr Clr Drug Dosing Est GFR ( Amer) Est GFR (Non-Af Amer) BUN/Creatinine Ratio Glucose POC Glucose 118 H Estimat Average Glucose 114 Hemoglobin A1c 5.6 Calcium Total Bilirubin AST ALT Alkaline Phosphatase Total Protein Albumin Globulin Albumin/Globulin Ratio Vitamin B1 Folate 10/13/18 10/13/18 10/13/18 15:19 17:36 21:00 WBC RBC Hgb Hct MCV MCH MCHC RDW Std Deviation RDW Coeff of Ekta Plt Count MPV Immature Gran % (Auto) Neut % (Auto) Lymph % (Auto) [place] % (Auto) Eos % (Auto) Baso % (Auto) Immature Gran # (Auto) Neut # (Auto) Lymph # (Auto) [place] # (Auto) Eos # (Auto) Baso # (Auto) PT INR Sodium Potassium Chloride Carbon Dioxide Anion Gap BUN Creatinine Est Cr Clr Drug Dosing Est GFR ( Amer) Est GFR (Non-Af Amer) BUN/Creatinine Ratio Glucose POC Glucose 99 117 H Estimat Average Glucose Hemoglobin A1c Calcium Total Bilirubin AST ALT Alkaline Phosphatase Total Protein Albumin Globulin Albumin/Globulin Ratio Vitamin B1 Folate 17.06 10/14/18 10/14/18 10/14/18 06:55 06:55 06:55 WBC 7.22 RBC 4.30 L Hgb 13.7 L Hct 39.7 L MCV 92.3 MCH 31.9 MCHC 34.5 RDW Std Deviation 41.3 RDW Coeff of Ekta 12.3 Plt Count 203 MPV 9.8 Immature Gran % (Auto) 0.1 Neut % (Auto) 73.8 Lymph % (Auto) 13.7 [place] % (Auto) 10.0 Eos % (Auto) 1.8 Baso % (Auto) 0.6 Immature Gran # (Auto) 0.01 Neut # (Auto) 5.33 Lymph # (Auto) 0.[address] # (Auto) 0.72 H Eos # (Auto) 0.13 Baso # (Auto) 0.04 PT 11.0 INR 1.1 Sodium Potassium Chloride Carbon Dioxide Anion Gap BUN Creatinine Est Cr Clr Drug Dosing Est GFR ( Amer) Est GFR (Non-Af Amer) BUN/Creatinine Ratio Glucose POC Glucose Estimat Average Glucose Hemoglobin A1c Calcium Total Bilirubin AST ALT Alkaline Phosphatase Total Protein Albumin Globulin Albumin/Globulin Ratio Vitamin B1 Pending Folate 10/14/18 10/14/18 06:55 08:07 WBC RBC Hgb Hct MCV MCH MCHC RDW Std Deviation RDW Coeff of Ekta Plt Count MPV Immature Gran % (Auto) Neut % (Auto) Lymph % (Auto) [place] % (Auto) Eos % (Auto) Baso % (Auto) Immature Gran # (Auto) Neut # (Auto) Lymph # (Auto) [place] # (Auto) Eos # (Auto) Baso # (Auto) PT INR Sodium 138 Potassium 4.2 Chloride 105 Carbon Dioxide 28 Anion Gap 5.0 BUN 13 Creatinine 1.14 Est Cr Clr Drug Dosing 101.7 Est GFR ( Amer) 88.3 Est GFR (Non-Af Amer) 76.2 BUN/Creatinine Ratio 11.6 Glucose 144 H POC Glucose 139 H Estimat Average Glucose Hemoglobin A1c Calcium 8.8 Total Bilirubin 1.1 H AST 22 ALT 41 Alkaline Phosphatase 54 Total Protein 6.7 Albumin 3.2 L Globulin 3.5 Albumin/Globulin Ratio 0.9 Vitamin B1 Folate Medications Administered Home Medications amlodipine 5 mg tablet 5 mg PO DAILY #90 tab 08/14/18 [Rx Confirmed 10/13/18] blood sugar diagnostic strips #10 ea 08/15/18 [History Confirmed 10/13/18] glimepiride 2 mg tablet 4 mg PO QAM #180 tab 08/15/18 [History Confirmed 10/13/18] liraglutide 0.6 mg/0.1 mL (18 mg/3 mL) subcutaneous pen injector 1.2 mg SUBCUT DAILY #1 ml 08/15/18 [History Confirmed 10/13/18] metformin 500 mg tablet 1,000 mg PO BID #360 tab 08/15/18 [History Confirmed 10/13/18] pen needle, diabetic 32 gauge x 532" #10 ea 08/15/18 [History Confirmed 0 10/13/18] valsartan 320 mg-hydrochlorothiazide 25 mg tablet 1 tab PO DAILY #90 tab 08/15/18 [History Confirmed 10/13/18] metoprolol succinate ER 25 mg tablet,extended release 24 hr 25 mg PO DAILY #90 t ab 10/09/18 [Rx Confirmed 10/13/18] Active Medications Acetaminophen (Tylenol) 650 mg PO Q4H PRN PRN Reason: pain/fever Stop: 11/12/18 12:45 Al Hydrox/Mg Hydrox/Simethicone (Maalox) 30 ml PO Q6H PRN PRN Reason: Dyspepsia Stop: 11/12/18 12:45 Amlodipine Besylate (Norvasc) 5 mg PO DAILY NESS Stop: 11/13/18 08:59 Last Admin: 10/14/18 09:21 Dose: 5 mg Documented by: Dextrose (Dextrose 50%) 25 - 50 ml IV UD PRN; Protocol PRN Reason: Hypoglycemia Protocol Stop: 11/13/18 09:14 Enoxaparin Sodium (Lovenox) 40 mg SQ Q24H NESS Stop: 11/12/18 15:59 Last Admin: 10/13/18 17:18 Dose: 40 mg Documented by: Glucagon (Glucagen) 1 mg IM UD PRN; Protocol PRN Reason: Hypoglycemia Protocol Stop: 11/13/18 09:14 Glucose (Glucose 40%) 15 - 30 gm PO UD PRN; Protocol PRN Reason: Hypoglycemia Protocol Stop: 11/13/18 09:14 Glucose (Dex4 Glucose) 4 - 8 tabs PO UD PRN; Protocol PRN Reason: Hypoglycemia Protocol Stop: 11/13/18 09:14 Hydrochlorothiazide (Hctz) 25 mg PO DAILY NESS Stop: 11/13/18 08:59 Last Admin: 10/14/18 09:25 Dose: 25 mg Documented by: Piperacillin Sod/Tazobactam (Sod 3.375 gm/ Dextrose) 115 mls @ 28.75 mls/hr IV Q8H [facility]; Protocol Stop: 11/24/18 15:59 Last Admin: 10/14/18 10:36 Dose: 28.8 mls/hr Documented by: Insulin Aspart (Novolog Flexpen) 0 units SC ACHS NESS Stop: 11/12/18 16:29 Last Admin: 10/14/18 09:20 Dose: Not Given Documented by: Lactobacillus Acidophilus (Floranex) 4 tab PO TIDM NESS Stop: 11/12/18 12:45 Last Admin: 10/14/18 09:20 Dose: 4 tab Documented by: Magnesium Hydroxide (Milk Of Magnesia) 30 ml PO Q6H PRN PRN Reason: Constipation Stop: 11/12/18 12:45 Metoprolol Succinate (Toprol Xl) 25 mg PO DAILY [facility] Stop: 11/13/18 08:59 Last Admin: 10/14/18 09:21 Dose: 25 mg Documented by: Miscellaneous (Order Awaiting Action) 1 ea N/A QS [facility] Stop: 11/12/18 15:59 Last Admin: 10/14/18 09:21 Dose: Not Given Documented by: Miscellaneous (Carbohydrates For Hypoglycemia) 15 - 30 gm PO UD PRN PRN Reason: Hypoglycemia Treatment Stop: 11/13/18 09:14 Miscellaneous Information (Consult) 1 ea N/A UD PRN PRN Reason: Consult Stop: 11/12/18 14:18 Ondansetron HCl (Zofran) 4 mg IV Q6H PRN PRN Reason: Nausea Stop: 11/12/18 12:45 Polyethylene Glycol (Miralax Powder Packet) 17 gm PO DAILY PRN PRN Reason: Constipation Stop: 11/12/18 12:45 Valsartan (Diovan) 320 mg PO DAILY [facility] Stop: 11/13/18 08:59 Last Admin: 10/14/18 09:25 Dose: 320 mg Documented by: PG Care Time/CCT Total # of Minutes Spent Total Time Spent with Patient: Total time spent is greater than 50% in coordination of care (as documented) at patient's floor/unit and/or counseling patient: (1) Infected abrasion of second toe of left foot Encounter type: initial encounter Qualified Code(s): S90.415A - Abrasion, left lesser toe(s), initial encounter; L08.9 - Local infection of the skin and subcutaneous tissue, unspecified
[2018-10-14] MEDS ORDERED: MULTI-VITAMIN INFUSION 10 ML, THIAMINE HCL 100 MG, FOLIC ACID 1 MG in SODIUM CHLORIDE 0... IV SCH (13:00)
[2018-10-14] MEDS: IBUPROFEN 800 MG TAB PO PRN (16:09)
[2018-10-14] MEDS: ENOXAPARIN INJ 40 MG/0.4 ML SYR SQ SCH (16:11)
--- NOTE | 2018-10-14 21:40 | Ultrasound Report ---
BILATERAL LOWER EXTREMITY ARTERIAL DOPPLER ULTRASOUND CLINICAL HISTORY: hx of diabetes, LE numbness, tingling COMPARISON STUDY: No previous studies for comparison. TECHNIQUE: Bilateral ankle to brachial indices were obtained. Grayscale and color and duplex Doppler sonography of the bilateral lower extremities was performed. FINDINGS: The right ankle to brachial index measured 1.1 when using posterior tibial artery and 1.2 w hen using the dorsalis pedis. The left ankle to brachial index measured 1.03 when using posterior tib ial artery and 0.92 when using the dorsalis pedis. Mild atherosclerotic plaque was identified within each lower extremity. There were triphasic waveforms within the bilateral common femoral, superficial femoral, popliteal, anterior tibial, posterior tibial and peroneal arteries. Elevated peak systolic velocity of 311 cm/second within the right dorsalis pedis was noted with monophasic flow distal to th is suspected stenosis. Elevated peak systolic velocity of 441 cm/s within the left dorsalis pedis was noted with monophasic flow distally. IMPRESSION: 1. Normal bilateral ankle to brachial indices. 2. Mild atherosclerotic plaque within the bilateral lower extremities. 3. Elevated velocities within the bilateral dorsalis pedis vessels which suggest stenoses. Electronically signed by: Aubrey Hernandez M.D. 10/14/2018 9:38 PM
[2018-10-15] MEDS: PIPERACILLIN/TAZOBACTAM 3.375 GM in DEXTROSE 5% 100 ML IV SCH ×3 (03:10→18:54)
[2018-10-15] MEDS ORDERED: Nursing to Pharmacy Communication ONE (03:35)
[2018-10-15] MEDS: INSULIN ASPART 100 UNITS/ML 3 ML PEN SC SCH ×3 (05:51→22:13)
[2018-10-15 06:58] LABS: Basophils # (auto) 0.04 K/uL (0-0.2); Basophils % (auto) 0.6 %; Eosinophils # (auto) 0.16 K/uL (0-0.5); Eosinophils % (auto) 2.4 %; Hematocrit (blood only) 38.2 % (42-52); Hemoglobin 13.9 g/dL (14.0-18.0); Immature Granulocytes # (auto) 0.01 K/uL (0.00-0.02); Immature Granulocytes % (auto) 0.1 %; Lymphocytes # (auto) 1.15 K/uL (1.2-3.4); Mean Corpuscular Hgb Conc 36.4 g/dL (32-36); Mean Corpuscular Volume 91.6 fL (80-100); Mean Platelet Volume 9.7 fL (7.4-10.4); Monocytes # (auto) 0.64 K/uL (0.11-0.59); Monocytes % (auto) 9.5 %; Neutrophils # (auto) 4.76 K/uL (1.4-6.5); Neutrophils % (auto) 70.4 %; Platelet Count 207 K/uL (130-400); RDW Coefficient of Variation 12.1 % (11.5-14.5); RDW Standard Deviation 40.7 fL (36.4-46.3); Red Blood Count 4.17 M/uL (4.7-6.1); White Blood Count 6.76 K/uL (4.8-10.8)
[2018-10-15 07:34] LABS: Albumin Level 3.2 gm/dl (3.4-5.0); BUN Creatinine Ratio 13.4 (10-20); Calcium 8.9 mg/dl (8.5-10.1); Creatinine Clr Calc Pharmacy 99.9 ml/min; Est GFR (African American) 86.4; Est GFR (Non-African American) 74.6; Potassium 4.2 mmol/L (3.5-5.1)
[2018-10-15 07:37] LABS: Albumin Globulin Ratio 0.8 (0.9-2); Total Protein 7.2 gm/dl (6.4-8.2)
[2018-10-15] MEDS: LACTOBACILLUS ACIDOPHILUS (FLORANEX) TAB PO SCH ×3 (09:12→22:06)
[2018-10-15] MEDS: METOPROLOL SUCC 25MG EXT REL TAB PO SCH (09:12)
[2018-10-15] MEDS: AMLODIPINE BESYLATE 5 MG TAB PO SCH (09:13)
[2018-10-15] MEDS: hydroCHLOROthiazide 25 MG TAB PO SCH (09:13)
[2018-10-15] MEDS: VALSARTAN 80 MG TAB PO SCH (09:13)
--- NOTE | 2018-10-15 11:15 | Orthopedic Progress Note ---
Date of Service October 15, 2018 Assessment & Plan (1) Infected abrasion of second toe of left foot: Left second toe cellulitis. Left second toe infected abrasion. Left second toe distal phalanx fracture. Crush injury left second toe. Continue IV Zosyn. Continue daily dressing changes. NPO for now. Will discuss wound with Dr Franklin. Antibx vs I&D/partial amputation. Subjective Pt sleeping upon arrival into room. Easily awoken. No complaints at this time. Toe feels a little better today. Physical Exam Physical Exam: Left 2nd toe dressing removed. Minimal drainage noted on the dressing. Darkened erythema of the toe. Small area dorsally with question of small amount of purulence unde skin. Unable to de-roof the skin. Very small area at the distal tip with solid purulent tissue. Pt feels the toe is less tender on palpation today. Redressed with adaptic, 4x4's, kerlix, and Eric wrap. Results & Data Vital Signs (Past 12 Hours) Vital Signs Temp Pulse Pulse Resp BP BP Pulse Ox 10/15/18 07:49 36.6 C 60 16 130/86 97 10/14/18 23:43 36.5 C 63 16 120/79 98 (1) Infected abrasion of second toe of left foot Encounter type: initial encounter Qualified Code(s): S90.415A - Abrasion, left lesser toe(s), initial encounter; L08.9 - Local infection of the skin and subcutaneous tissue, unspecified
[2018-10-15] MEDS ORDERED: PROPOFOL IV EMULSION 10 MG/ML 20 ML VIAL IV ONE (16:34)
[2018-10-15] MEDS ORDERED: LIDOCAINE HCL 2% 2 ML VIAL/AMP(20MG/ML) INFIL ONE (16:34)
[2018-10-15] MEDS ORDERED: fentaNYL citrate 100 MCG/2 ML VIAL ONE ×3 (16:34→18:42)
[2018-10-15] MEDS ORDERED: BUPIVACAINE 0.5 % 5 MG/1 ML MPF 30ML VIAL ONE (16:53)
[2018-10-15] MEDS ORDERED: BACITRACIN INJ 50,000 UNIT VIAL ONE (16:53)
--- NOTE | 2018-10-15 17:04 | Anesthesiology Consultation ---
Date of Service October 15, 2018 Assessment & Plan (1) Infected abrasion of second toe of left foot: Chart Review Chart Review: Acceptable Risk for Surgery ASA ASA3 Proposed Anesthesia Anesthesia Type: General Risk / Benefits Reviewed With: PT / POA / Parent / Guardian, Accepts Plan and Informed Consent Obtained Additional Comments: pt counselled that tooth damage/breakage may occur History Surgery Operation Date: 10/15/18 10:20 Proposed Procedures p Left Incision and Drainage 2nd Toe, Possible Distal Phalanx Amputation - Emile Franklin DO Height/Weight Height: 6 ft Weight: 108 kg Allergies Allergy/AdvReac Type Severity Reaction Status Date / Time No Known Allergies Allergy Unverified 10/13/18 10:44 Medications Home Medications Medication Instructions Recorded Confirmed Last Taken amlodipine 5 mg tablet 5 mg PO DAILY #90 tab 08/14/18 10/13/18 10/13/18 blood sugar diagnostic strips #10 ea 08/15/18 10/13/18 Unknown glimepiride 2 mg tablet 4 mg PO QAM #180 tab 08/15/18 10/13/18 10/13/18 liraglutide 0.6 mg/0.1 mL (18 mg/3 1.2 mg SUBCUT DAILY #1 ml 08/15/18 10/13/18 10/13/18 mL) subcutaneous pen injector metformin 500 mg tablet 1,000 mg PO BID #360 tab 08/15/18 10/13/18 10/13/18 pen needle, diabetic 32 gauge x #10 ea 08/15/18 10/13/18 Unknown " valsartan 320 1 tab PO DAILY #90 tab 08/15/18 10/13/18 10/13/18 mg-hydrochlorothiazide 25 mg tablet metoprolol succinate ER 25 mg 25 mg PO DAILY #90 tab 10/09/18 10/13/18 10/13/18 tablet,extended release 24 hr Active Medications Generic Name Dose Route Start Last Admin Trade Name Freq PRN Reason Stop Dose Admin Amlodipine Besylate 5 mg 10/14/18 09:00 10/15/18 09:13 Norvasc PO 11/13/18 08:59 5 mg DAILY NESS Administration Enoxaparin Sodium 40 mg 10/13/18 16:00 10/14/18 16:11 Lovenox SQ 11/12/18 15:59 40 mg Q24H NESS Administration Hydrochlorothiazide 25 mg 10/14/18 09:00 10/15/18 09:13 Hctz PO 11/13/18 08:59 25 mg DAILY NESS Administration Piperacillin Sod/Tazobactam 115 mls @ 28.75 mls/hr 10/13/18 16:00 10/15/18 11:37 Sod 3.375 gm/ Dextrose IV 11/24/18 15:59 28.8 mls/hr Q8H NESS Administration Protocol Ibuprofen 800 mg 10/14/18 14:14 10/14/18 16:09 Motrin PO 11/13/18 14:13 800 mg TID PRN Administration Pain Insulin Aspart 0 units 10/15/18 06:00 10/15/18 13:22 Novolog Flexpen SC 11/14/18 05:59 Not Given Q6 NESS Lactobacillus Acidophilus 4 tab 10/13/18 12:46 10/15/18 11:37 Floranex PO 11/12/18 12:45 4 tab TIDM NESS Administration Metoprolol Succinate 25 mg 10/14/18 09:00 10/15/18 09:12 Toprol Xl PO 11/13/18 08:59 25 mg DAILY NESS Administration Miscellaneous 1 ea 10/13/18 16:00 10/15/18 09:12 Order Awaiting Action N/A 11/12/18 15:59 Not Given QS NESS Valsartan 320 mg 10/14/18 09:00 10/15/18 09:13 Diovan PO 11/13/18 08:59 320 mg DAILY NESS Administration NPO Date Last Intake of Fluids: 10/14/18 Time Last Intake of Fluids: 23:59 Last Intake of Fluids Comment: sips of water with pills this am Date Last Intake of Solids: 10/14/18 Time Last Intake of Solids: 18:30 Last Intake of Solids Comment: prior to shift. 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) Snoring (Acute) Hepatic steatosis (Acute) Essential hypertension (Acute) Dyslipidemia (Acute) Other injury of muscle, fascia and tendon of long head of biceps, left arm, initial encounter biciptal tenodesis Soft tissue complication of diabetes mellitus Exercise / Class Metabolic Activity II 4-5 Yardwork/Stairs/Walk up hill Past Family History Family History Mother Emphysema of lung Diabetes Father Past Anesthesia History No Hx of Anesthesia Complications and No Family Hx of Anesthesia Complications Social History Smoking Status: Never smoker Hx Alcohol Use: Yes Alcohol type: beer alcohol intake frequency: 3 or more drinks per day Alcohol Intake Frequency Comment: 12 cans beer daily Hx Substance Use: No Physical Exam Vital Signs Last Vital Signs Temp 36.5 C 10/15/18 16:41 Pulse 70 10/15/18 16:41 Resp 16 10/15/18 16:41 BP 135/91 10/15/18 16:41 Pulse Ox 98 10/15/18 16:41 ENMT Mouth: + poor dentition; no TMJ abnormality Thyromental Distance: > or= 3.5 Finger Breadths Mallampati Class: II very poor dentition with multiple missing and left front middle upper tooth broken and almost all abscent. Multiple missing, none a tongue loose Neck normal visual inspection and trachea midline; neck extension not limited Respiratory normal respiratory effort Auscultation: lungs clear to auscultation bilaterally Cardiovascular Rate/Rhythm: regular rate and regular rhythm Heart Sounds: no murmur Musculoskeletal Spine: normal cervical ROM Extremities: full ROM of extremities Neurologic moves all extremities Psychiatric Orientation: alert and oriented x 3 Testing Laboratory Results 10/15/18 06:40 10/15/18 06:40 PT 11.0 Seconds (9.0-12.0) 10/14/18 06:55 INR 1.1 (0.9-1.1) 10/14/18 06:55 Hemoglobin A1c 5.6 % (4.5-5.6) 10/13/18 10:15 10/13/18 10:00 Gram Stain - Final Foot,Left Wound Culture - Preliminary Staphylococcus aureus Staphylococcus aureus#2 10/15/18 10/15/18 10/15/18 16:41 12:12 05:50 POC Glucose 112 H 124 H 131 H Electrocardiogram Date: 08/31/17 Findings: + ST @ 101bpm no other findings Stress Test Type: exercise Findings: + WNL per pt summer 2017 (1) Infected abrasion of second toe of left foot Encounter type: initial encounter Qualified Code(s): S90.415A - Abrasion, left lesser toe(s), initial encounter; L08.9 - Local infection of the skin and subcutaneous tissue, unspecified
--- NOTE | 2018-10-15 17:07 | History & Physical Bridge Note ---
Date of Service October 15, 2018 History & Physical Bridge Note I have examined the patient, reviewed the History & Physical and in the interval since the performance of the History & Physical I have noted the following changes of clinical significance: Will require incision and drainage left second toe with partial amputation.
--- NOTE | 2018-10-15 17:13 | Family Medicine Progress Note ---
Date of Service October 15, 2018 Assessment & Plan (1) Infected abrasion of second toe of left foot: Mr. Lofton is a 48yo male with a PMHx significant for DMII and HTN who presents today for a nonhealing left second toe. States about a week ago he dropped an instrument on his foot and has noticed the pain, redness, and swelling with drainage since then. Left toe fracture/cellulitis and abscess in the setting of DM and PVD s/p I and D -XR of toe--with acute fracture, soft tissue swelling and gas noted. -ortho consulted. Toe abscess was incised and drained after nail plate removed. Continued drainage from the wound 10/14, advised to continue Zosyn with plan for operative management should drainage continue on 10/15. -continue Zosyn. Will d/c clindamycin and vancomycin- less likely MRSA given no hx of recent hosp, location of lesion, etc. - wound culture- grew staph aureus. -arterial dopplers ordered to confirm suspected PVD-suggestion of stenoses in the dorsalis pedis arteries bilaterally. Alcohol use ds -Given pt's level of alcohol use and Hx obtained, mild concern for withdrawal. Pt states that he has abstained from drinking recently for 30days+ without symptoms. -counseled on withdrawal symptoms and to notify staff should they start. -will start on banana bag daily, folate WNL, thiamine level still pending. 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 -liver enzymes reassuring, currently normal and has been on downtrend. -will continue to trend. HTN -continue home meds DMII -HgbA1c of 5.6 -Hold home meds -ISS FEN/GI: on banana bag, Diabetic diet. 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 Payan and agree with the findings and care plan. Subjective Pt seen this AM, in no acute distress. States he is a bit anxious to know whether toe will operated on or not. Denied any alcohol withdrawal symptoms. Said he had some diarrhea. Denied fevers, chills, night sweats, DELUCA, chest pain, SOB, abd pain, N/V. Review of Systems Review of Systems: All systems reviewed & are unremarkable except as noted in HPI & below Physical Exam Physical Exam: General: Alert, oriented. No acute distress. HEENT: NC/AT, PERRLA, EOMI, oropharynx moist. Chest: Nontender to palpation. CV: RRR, Normal s1, s2. No murmurs appreciated Resp: Breath sounds clear bilaterally, no increased effort of breathing. No crackles/rhonchi/rales. Abdomen: Soft, nontender, nondistended. No guarding. No organomegaly appreciated. Extremities:Left second toe bandaged this AM. No visible drainage or blood on bandage. Results & Data Vital Signs (Past 12 Hours) Vital Signs Temp Pulse Pulse Resp BP Pulse Ox 10/15/18 16:41 36.5 C 70 16 135/91 98 10/15/18 15:22 36.7 C 64 16 111/70 96 10/15/18 07:49 36.6 C 60 16 130/86 97 Laboratory Results Laboratory Results - last 24 hr 10/14/18 10/14/18 10/15/18 17:03 21:42 05:50 WBC RBC Hgb Hct MCV MCH MCHC RDW Std Deviation RDW Coeff of Ekta Plt Count MPV Immature Gran % (Auto) Neut % (Auto) Lymph % (Auto) [place] % (Auto) Eos % (Auto) Baso % (Auto) Immature Gran # (Auto) Neut # (Auto) Lymph # (Auto) [place] # (Auto) Eos # (Auto) Baso # (Auto) Sodium Potassium Chloride Carbon Dioxide Anion Gap BUN Creatinine Est Cr Clr Drug Dosing Est GFR ( Amer) Est GFR (Non-Af Amer) BUN/Creatinine Ratio Glucose POC Glucose 100 H 127 H 131 H Calcium Total Bilirubin AST ALT Alkaline Phosphatase Total Protein Albumin Globulin Albumin/Globulin Ratio 10/15/18 10/15/18 10/15/18 06:40 06:40 12:12 WBC 6.76 RBC 4.17 L Hgb 13.9 L Hct 38.2 L MCV 91.6 MCH 33.3 MCHC 36.4 H RDW Std Deviation 40.7 RDW Coeff of Ekta 12.1 Plt Count 207 MPV 9.7 Immature Gran % (Auto) 0.1 Neut % (Auto) 70.4 Lymph % (Auto) 17.0 [place] % (Auto) 9.5 Eos % (Auto) 2.4 Baso % (Auto) 0.6 Immature Gran # (Auto) 0.01 Neut # (Auto) 4.76 Lymph # (Auto) 1.15 L [place] # (Auto) 0.64 H Eos # (Auto) 0.16 Baso # (Auto) 0.04 Sodium 140 Potassium 4.2 Chloride 105 Carbon Dioxide 29 Anion Gap 6.0 BUN 16 Creatinine 1.16 Est Cr Clr Drug Dosing 99.9 Est GFR ( Amer) 86.4 Est GFR (Non-Af Amer) 74.6 BUN/Creatinine Ratio 13.4 Glucose 146 H POC Glucose 124 H Calcium 8.9 Total Bilirubin 1.0 AST 29 ALT 48 Alkaline Phosphatase 55 Total Protein 7.2 Albumin 3.2 L Globulin 4.0 Albumin/Globulin Ratio 0.8 L 10/15/18 16:41 WBC RBC Hgb Hct MCV MCH MCHC RDW Std Deviation RDW Coeff of Ekta Plt Count MPV Immature Gran % (Auto) Neut % (Auto) Lymph % (Auto) [place] % (Auto) Eos % (Auto) Baso % (Auto) Immature Gran # (Auto) Neut # (Auto) Lymph # (Auto) [place] # (Auto) Eos # (Auto) Baso # (Auto) Sodium Potassium Chloride Carbon Dioxide Anion Gap BUN Creatinine Est Cr Clr Drug Dosing Est GFR ( Amer) Est GFR (Non-Af Amer) BUN/Creatinine Ratio Glucose POC Glucose 112 H Calcium Total Bilirubin AST ALT Alkaline Phosphatase Total Protein Albumin Globulin Albumin/Globulin Ratio Medications Administered Home Medications amlodipine 5 mg tablet 5 mg PO DAILY #90 tab 08/14/18 [Rx Confirmed 10/13/18] blood sugar diagnostic strips #10 ea 08/15/18 [History Confirmed 10/13/18] glimepiride 2 mg tablet 4 mg PO QAM #180 tab 08/15/18 [History Confirmed 10/13/18] liraglutide 0.6 mg/0.1 mL (18 mg/3 mL) subcutaneous pen injector 1.2 mg SUBCUT DAILY #1 ml 08/15/18 [History Confirmed 10/13/18] metformin 500 mg tablet 1,000 mg PO BID #360 tab 08/15/18 [History Confirmed 10/13/18] pen needle, diabetic 32 gauge x 5/32" #10 ea 08/15/18 [History Confirmed 10/13/18] valsartan 320 mg-hydrochlorothiazide 25 mg tablet 1 tab PO DAILY #90 tab 08/15/18 [History Confirmed 10/13/18] metoprolol succinate ER 25 mg tablet,extended release 24 hr 25 mg PO DAILY #90 tab 10/09/18 [Rx Confirmed 10/13/18] Active Medications Al Hydrox/Mg Hydrox/Simethicone (Maalox) 30 ml PO Q6H PRN PRN Reason: Dyspepsia Stop: 11/12/18 12:45 Amlodipine Besylate (Norvasc) 5 mg PO DAILY NESS Stop: 11/13/18 08:59 Last Admin: 10/15/18 09:13 Dose: 5 mg Documented by: Dextrose (Dextrose 50%) 25 - 50 ml IV UD PRN; Protocol PRN Reason: Hypoglycemia Protocol Stop: 11/13/18 09:14 Enoxaparin Sodium (Lovenox) 40 mg SQ Q24H NESS Stop: 11/12/18 15:59 Last Admin: 10/14/18 16:11 Dose: 40 mg Documented by: Glucagon (Glucagen) 1 mg IM UD PRN; Protocol PRN Reason: Hypoglycemia Protocol Stop: 11/13/18 09:14 Glucose (Glucose 40%) 15 - 30 gm PO UD PRN; Protocol PRN Reason: Hypoglycemia Protocol Stop: 11/13/18 09:14 Glucose (Dex4 Glucose) 4 - 8 tabs PO UD PRN; Protocol PRN Reason: Hypoglycemia Protocol Stop: 11/13/18 09:14 Hydrochlorothiazide (Hctz) 25 mg PO DAILY NESS Stop: 11/13/18 08:59 Last Admin: 10/15/18 09:13 Dose: 25 mg Documented by: Piperacillin Sod/Tazobactam (Sod 3.375 gm/ Dextrose) 115 mls @ 28.75 mls/hr IV Q8H NESS; Protocol Stop: 11/24/18 15:59 Last Admin: 10/15/18 11:37 Dose: 28.8 mls/hr Documented by: Ibuprofen (Motrin) 800 mg PO TID PRN PRN Reason: Pain Stop: 11/13/18 14:13 Last Admin: 10/14/18 16:09 Dose: 800 mg Documented by: Insulin Aspart (Novolog Flexpen) 0 units SC Q6 NESS Stop: 11/14/18 05:59 Last Admin: 10/15/18 13:22 Dose: Not Given Documented by: Lactobacillus Acidophilus (Floranex) 4 tab PO TIDM NESS Stop: 11/12/18 12:45 Last Admin: 10/15/18 11:37 Dose: 4 tab Documented by: Magnesium Hydroxide (Milk Of Magnesia) 30 ml PO Q6H PRN PRN Reason: Constipation Stop: 11/12/18 12:45 Metoprolol Succinate (Toprol Xl) 25 mg PO DAILY [facility] Stop: 11/13/18 08:59 Last Admin: 10/15/18 09:12 Dose: 25 mg Documented by: Miscellaneous (Order Awaiting Action) 1 ea N/A QS [facility] Stop: 11/12/18 15:59 Last Admin: 10/15/18 09:12 Dose: Not Given Documented by: Miscellaneous (Carbohydrates For Hypoglycemia) 15 - 30 gm PO UD PRN PRN Reason: Hypoglycemia Treatment Stop: 11/13/18 09:14 Miscellaneous Information (Consult) 1 ea N/A UD PRN PRN Reason: Consult Stop: 11/12/18 14:18 Multi-Ingredient Cream (Hydrocerin) 1 appln EXT BID [facility] Stop: 11/14/18 20:59 Ondansetron HCl (Zofran) 4 mg IV Q6H PRN PRN Reason: Nausea Stop: 11/12/18 12:45 Polyethylene Glycol (Miralax Powder Packet) 17 gm PO DAILY PRN PRN Reason: Constipation Stop: 11/12/18 12:45 Valsartan (Diovan) 320 mg PO DAILY [facility] Stop: 11/13/18 08:59 Last Admin: 10/15/18 09:13 Dose: 320 mg Documented by: PG Care Time/CCT Total # of Minutes Spent Total Time Spent with Patient: Total time spent is greater than 50% in coordination of care (as documented) at patient's floor/unit and/or counseling patient: (1) Infected abrasion of second toe of left foot Encounter type: initial encounter Qualified Code(s): S90.415A - Abrasion, left lesser toe(s), initial encounter; L08.9 - Local infection of the skin and subcutaneous tissue, unspecified
[2018-10-15] MEDS ORDERED: fentaNYL citrate 100 MCG/2 ML VIAL IV PRN (17:28)
[2018-10-15] MEDS ORDERED: MoRPHine SULFATE 10 MG/ML CARP/VIAL IV PRN (17:28)
[2018-10-15] MEDS ORDERED: ATROPINE SULFATE 0.1 MG/ML 10ML SYR IV PRN (17:28)
[2018-10-15] MEDS ORDERED: ePHEDrine sulfate 50 MG/ML AMP IV PRN (17:28)
[2018-10-15] MEDS ORDERED: MEPERIDINE HCL 25 MG/ML CARP IV PRN (17:28)
[2018-10-15] MEDS ORDERED: ONDANSETRON INJ 2 MG/ML 2 ML VIAL IV PRN (17:28)
[2018-10-15] MEDS ORDERED: MIDAZOLAM HCL 1 MG/ML 2ML VIAL ONE (18:00)
[2018-10-15] MEDS ORDERED: ONDANSETRON INJ 2 MG/ML 2 ML VIAL ONE (18:28)
[2018-10-15] MEDS ORDERED: DEXAMETHASONE SOD INJ 4 MG/ML VIAL ONE (18:42)
[2018-10-15] MEDS ORDERED: ePHEDrine sulfate 50 MG/ML SYR ONE (18:58)
--- NOTE | 2018-10-15 19:16 | Post Operative Brief Note ---
Immediate Post Op Note v1 Date of Surgery October 15, 2018 Pre & Post Diagnosis Operation Date: 10/15/18 10:20 Pre-Op Diagnosis: LEFT SECOND TOE ABSCESS, OSTEOMYELITIS DISTAL PHALANX Post-Op Diagnosis: LEFT SECOND TOE ABSCESS, OSTEOMYELITIS DISTAL PHALANX Procedure Operation Date: 10/15/18 10:20 Actual Procedures p Left foot incision and Drainage abscess second Toe, left second toe partial Amputation(Left) - Emile Franklin DO Surgeon Emile Franklin DO Netsuite Developer None Estimated Blood Loss 2 Findings Consistent with Post-Op Diagnosis Specimens Aerobic anaerobic Gram stain abscess left second toe; amputated parts left second toe Complications none Disposition Accompanied Patient To Recovery: No Disposition: Recovery Room
--- NOTE | 2018-10-15 19:53 | Anesthesiology Progress Note ---
Date of Service October 15, 2018 Anesthesia Post Procedure Vital Signs Vital Signs: Temp Pulse Pulse Resp BP BP Pulse Ox 10/15/18 19:45 68 15 111/71 94 10/15/18 19:35 67 12 112/72 94 10/15/18 19:25 66 21 108/64 98 10/15/18 19:19 36.8 C 71 12 104/65 99 10/15/18 16:41 36.5 C 70 16 135/91 98 10/15/18 15:22 36.7 C 64 16 111/70 96 10/15/18 07:49 36.6 C 60 16 130/86 97 10/14/18 23:43 36.5 C 63 16 120/79 98 Pain Intensity Left Toe: Pain Intensity: 0 Notes Mental Status: alert / awake / arousable and participated in evaluation Nausea / Vomiting: adequately controlled Pain: adequately controlled Airway Patency, RR, SpO2: stable & adequate BP & HR: stable & adequate Hydration State: stable & adequate Anesthetic Complications: no major complications apparent and Pt Satisfied with anesthetic care Notes: teeth intact upon PACU arrival
--- NOTE | 2018-10-15 20:26 | Operative Report ---
DATE OF OPERATION: 10/15/2018 PREOPERATIVE DIAGNOSES: 1. Left second toe abscess. 2. Left second toe osteomyelitis of the distal phalanx. POSTOPERATIVE DIAGNOSES: 1. Left second toe abscess. 2. Left second toe osteomyelitis of the distal phalanx. PROCEDURE: 1. Left second toe incision and drainage abscess. 2. Partial amputation left second toe. SURGEON: Emile Franklin DO. CLINICAL CYTOGENETICIST SCIENTIST: None. ANESTHESIA: General with regional. SPECIMENS: 1. Aerobic, anaerobic, Gram stain from deep left second toe abscess. 2. Amputated part, left second toe. DRAINS: None. COMPLICATIONS: None. BLOOD LOSS: 2 mL. 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 They slipped, shifted and fell approximately 2 inches onto his left foot. He had an abrasion with a crush injury at that time. He tried to manage it conservatively with ice, elevation and management with modified shoe wear, approximately a week later began to have pain and swelling and presented to the Emergency Department and admitted to the hospital on IV antibiotics. He was seen in the hospital in consultation, noted to have significant swelling with partial loss of the nail. The nail was debrided and removed at bedside and had some improvement in his symptoms with IV Zosyn and after a local debridement at the bedside; however, purulence persisted over 2 days with limited improvement of purulence. However, he did have some reduction in swelling. The feeling was that the damage to the second toe with abscess formation was to advance and would require surgical intervention. Therefore, the patient was then taken to the operative suite as indicated. All potential risks, benefits, complications, alternatives, rehab, potential for incomplete relief of symptoms, need for further surgery, DVT, PE, , persistent pain, swelling, scarring, weakness, neurovascular injury, wound complications, need for possible further amputation were discussed with the patient. The patient decided to proceed with procedure as indicated. DESCRIPTION OF PROCEDURE: The patient was taken to operative suite, placed supine on the operating room table. After review of consent and identification of proper operative site, the patient was anesthetized, LMA was placed. Left lower extremity was then sterilely prepped and draped in usual fashion, elevated and partially exsanguinated from the mid foot proximal to avoid the area of infection with an Esmarch bandage. The Esmarch bandage then applied over sterile surgical towel over the ankle for tourniquet. Next, an incision was made at the distal phalanx at the site of abscess. The abscess was then decompressed; aerobic, anaerobic and Gram stain specimens were obtained from deep within the abscess pocket and then upon further examination it was noted to be tracking of abscess along the dorsal extensor to the level of the middle phalanx. Next level of resection was then determined from the tracking of the local infection and abscess. Next, a dorsal incision was made with a #15 blade scalpel approximately over the mid plane of the middle phalanx. The incision was deepened through the skin and subcutaneous tissue, dorsal extensor and periosteum. Next, incision was then carried down to the medial and lateral aspects of the mid lateral line, which was then extended distally with a generous plantar flap. This incision was then carried through the skin, through and through the flexor tendon and the neurovascular structures both medial and lateral. Next, the dorsal aspect of the distal interphalangeal joint was then incised with 15 blade scalpel. Collateral ligaments were sacrificed and the distal aspect of the toe was then passed off as specimen. Next, the flap was then carefully elevated away from the plantar aspect of the middle phalanx to preserve the vascularity of the flap and then using appropriate retractors to protect soft tissues, a sagittal saw was then used to resect the middle phalanx of the left second toe. This was then passed also off as specimen. The flap was then revised with a 15 blade scalpel. This was copiously irrigated then with approximately 2 liters of fluid with bacitracin and bulb syringe until clear. Next, top gloves were changed and then the full-thickness flap was then closed using 3-0 nylon sutures, a combination of horizontal mattress and interrupted simple sutures. Next, a local field block was performed. Digital block with approximately 10 mL of 0.5% Marcaine plain at the base of the left second toe. Once this was completed, sterile compressive dressing was applied consisting of Xeroform gauze, sterile 4 x 4's, Kerlix roll and a 4-inch cast pad overwrapped with an Eric wrap. The tourniquet was released. The patient was awakened and taken to recovery in stable condition. I attest to the content of the Intraoperative Record and any orders documented therein. Any exception s are noted below.
[2018-10-15] MEDS: EUCERIN CR 120 GM JAR EXT SCH (22:06)
[2018-10-15] MEDS: ENOXAPARIN INJ 40 MG/0.4 ML SYR SQ SCH (22:06)
[2018-10-16] MEDS: INSULIN ASPART 100 UNITS/ML 3 ML PEN SC SCH ×5 (00:28→21:57)
[2018-10-16] MEDS: PIPERACILLIN/TAZOBACTAM 3.375 GM in DEXTROSE 5% 100 ML IV SCH ×3 (01:59→19:11)
[2018-10-16 07:45] LABS: Basophils # (auto) 0.01 K/uL (0-0.2); Basophils % (auto) 0.1 %; Eosinophils # (auto) 0.02 K/uL (0-0.5); Eosinophils % (auto) 0.2 %; Hematocrit (blood only) 38.9 % (42-52); Hemoglobin 14.2 g/dL (14.0-18.0); Immature Granulocytes # (auto) 0.01 K/uL (0.00-0.02); Immature Granulocytes % (auto) 0.1 %; Lymphocytes # (auto) 0.99 K/uL (1.2-3.4); Lymphocytes % (auto) 10.7 %; Mean Corpuscular Hgb Conc 36.5 g/dL (32-36); Mean Corpuscular Volume 89.4 fL (80-100); Mean Platelet Volume 9.5 fL (7.4-10.4); Monocytes # (auto) 0.49 K/uL (0.11-0.59); Monocytes % (auto) 5.3 %; Neutrophils # (auto) 7.76 K/uL (1.4-6.5); Neutrophils % (auto) 83.6 %; Platelet Count 286 K/uL (130-400); RDW Coefficient of Variation 11.9 % (11.5-14.5); RDW Standard Deviation 38.7 fL (36.4-46.3); Red Blood Count 4.35 M/uL (4.7-6.1); White Blood Count 9.28 K/uL (4.8-10.8)
[2018-10-16] MEDS: LACTOBACILLUS ACIDOPHILUS (FLORANEX) TAB PO SCH ×3 (08:02→18:35)
[2018-10-16] MEDS: IBUPROFEN 800 MG TAB PO PRN (08:02)
[2018-10-16] MEDS: VALSARTAN 80 MG TAB PO SCH (08:07)
[2018-10-16] MEDS: METOPROLOL SUCC 25MG EXT REL TAB PO SCH (08:07)
[2018-10-16] MEDS: EUCERIN CR 120 GM JAR EXT SCH ×2 (08:08→22:07)
[2018-10-16] MEDS: AMLODIPINE BESYLATE 5 MG TAB PO SCH (08:08)
[2018-10-16] MEDS: hydroCHLOROthiazide 25 MG TAB PO SCH (08:08)
[2018-10-16 08:13] LABS: Albumin Level 3.3 gm/dl (3.4-5.0); BUN Creatinine Ratio 15.2 (10-20); Calcium 9.5 mg/dl (8.5-10.1); Creatinine Clr Calc Pharmacy 102.6 ml/min; Est GFR (African American) 89.2; Potassium 3.9 mmol/L (3.5-5.1)
[2018-10-16 08:16] LABS: Albumin Globulin Ratio 0.8 (0.9-2); Bilirubin,Total 0.5 mg/dl (0.2-1); Globulin 4.4 gm/dl (2.5-4.0); Total Protein 7.7 gm/dl (6.4-8.2)
--- NOTE | 2018-10-16 08:22 | Anesthesiology Progress Note ---
Date of Service October 16, 2018 Anesthesia Post Procedure Vital Signs Vital Signs: Temp Pulse Pulse Pulse Resp BP BP 10/16/18 08:05 36.6 C 66 16 121/80 10/16/18 07:22 36.3 C L 54 L 16 114/74 10/16/18 03:33 36.5 C 60 16 106/69 10/15/18 23:15 36.6 C 80 18 125/81 10/15/18 22:29 36.5 C 92 H 16 114/73 10/15/18 21:36 36.8 C 64 16 128/82 10/15/18 20:50 36.3 C L 68 16 105/66 10/15/18 20:25 36.7 C 67 16 118/76 10/15/18 19:55 62 13 113/67 10/15/18 19:45 68 15 111/71 10/15/18 19:35 67 12 112/72 10/15/18 19:25 66 21 108/64 10/15/18 19:19 36.8 C 71 12 104/65 10/15/18 16:41 36.5 C 70 16 135/91 10/15/18 15:22 36.7 C 64 16 111/70 Pulse Ox 10/16/18 08:05 98 10/16/18 07:22 95 10/16/18 03:33 99 10/15/18 23:15 98 10/15/18 22:29 92 10/15/18 21:36 96 10/15/18 20:50 92 10/15/18 20:25 95 10/15/18 19:55 94 10/15/18 19:45 94 10/15/18 19:35 94 10/15/18 19:25 98 10/15/18 19:19 99 10/15/18 16:41 98 10/15/18 15:22 96 Pain Intensity Left Toe: Pain Intensity: 0 Notes Mental Status: alert / awake / arousable and participated in evaluation Patient Amnestic to Procedure: Yes Nausea / Vomiting: adequately controlled Pain: adequately controlled Airway Patency, RR, SpO2: stable & adequate BP & HR: stable & adequate Hydration State: stable & adequate Anesthetic Complications: no major complications apparent and Pt Satisfied with anesthetic care
--- NOTE | 2018-10-16 09:00 | Orthopedic Progress Note ---
Date of Service October 16, 2018 Assessment & Plan (1) Osteomyelitis of second toe of left foot: Continue compressive dressing at this time. Continue IV antibiotics Up with therapy weightbearing as tolerated on the heel only of the left foot Plan for dressing change tomorrow. Subjective Postop day 1 status post left I&D of second toe with amputation of distal phalanx. Patient is awake and alert. He is sitting up in bed eating breakfast. Pain is controlled. He has no overt complaints at this time. Physical Exam Physical Exam: Dressings are clean dry and intact. Results & Data Vital Signs (Past 12 Hours) Vital Signs Temp Pulse Resp BP BP Pulse Ox 10/16/18 08:05 36.6 C 66 16 121/80 98 10/16/18 07:22 36.3 C L 54 L 16 114/74 95 10/16/18 03:33 36.5 C 60 16 106/69 99 10/15/18 23:15 36.6 C 80 18 125/81 98 10/15/18 22:29 36.5 C 92 H 16 114/73 92 10/15/18 21:36 36.8 C 64 16 128/82 96
[2018-10-16] MEDS: ENOXAPARIN INJ 40 MG/0.4 ML SYR SQ SCH (15:34)
--- NOTE | 2018-10-16 18:05 | Family Medicine Progress Note ---
Date of Service October 16, 2018 Assessment & Plan (1) Infected abrasion of second toe of left foot: Mr. Lofton is a 48yo male with a PMHx significant for DMII and HTN who presents today for a nonhealing left second toe. States about a week ago he dropped an instrument on his foot and has noticed the pain, redness, and swelling with drainage since then. Left toe fracture/cellulitis s/p ID on repeat I and debridement on 10/15. -pain well controlled; -Likely caused from infected injury, with diabetic status and poor wound healing from excessive alc use. -Toe abscess was incised and drained after nail plate removed. repeat I and D on 10/15 -continue Zosyn. d/bassam clindamycin and vancomycin- less likely MRSA given no hx of recent hosp, location of lesion, etc. - wound culture- grew staph aureus. -arterial dopplers ordered to confirm suspected PVD-suggestion of stenoses in the dorsalis pedis arteries bilaterally. Alcohol use ds -Given pt's level of alcohol use and Hx obtained, mild concern for withdrawal. Pt states that he has abstained from drinking recently for 30days+ without symptoms. -counseled on withdrawal symptoms and to notify staff should they start. -MVI -Will queen's counsel on need to quit. -liver enzymes reassuring, currently normal and has been on downtrend. -will continue to trend. HTN -continue home meds DMII -HgbA1c of 5.6 -Hold home meds -ISS FEN/GI: on banana bag, Diabetic diet. CODE STATUS: Full code DVT prophylaxis: Lovenox SQ Dispo: med/surg Supervising Physician Co-Signing Physician Notes Resident Physician Supervision Note: I independently interviewed and examined the patient and verified the verduzco history and physical, reviewed labs and image studies, discussed the case with the resident Dr. Payan and agree with the findings and care plan. Subjective Pt states he's doing well today. Denies fevers, chills, night sweats. Also denies DELUCA, chest pain, palps, abd pain, N/V, diarhea, constipation. Review of Systems Review of Systems: All systems reviewed & are unremarkable except as noted in HPI & below Physical Exam Physical Exam: General: Alert, oriented. No acute distress. HEENT: NC/AT, PERRLA, EOMI, oropharynx moist. Chest: Nontender to palpation. CV: RRR, Normal s1, s2. No murmurs appreciated Resp: Breath sounds clear bilaterally, no increased effort of breathing. No crackles/rhonchi/rales. Abdomen: Soft, nontender, nondistended. No guarding. No organomegaly appreciated. Extremities:Left second toe and foot bandaged this AM. No visible drainage or blood on bandage. Results & Data Vital Signs (Past 12 Hours) Vital Signs Temp Pulse Pulse Resp BP BP Pulse Ox 10/16/18 15:08 36.8 C 74 16 118/73 98 10/16/18 08:05 36.6 C 66 16 121/80 98 10/16/18 07:22 36.3 C L 54 L 16 114/74 95 Laboratory Results Laboratory Results - last 24 hr 10/15/18 10/15/18 10/16/18 19:21 20:53 00:25 WBC RBC Hgb Hct MCV MCH MCHC RDW Std Deviation RDW Coeff of Ekta Plt Count MPV Immature Gran % (Auto) Neut % (Auto) Lymph % (Auto) [place] % (Auto) Eos % (Auto) Baso % (Auto) Immature Gran # (Auto) Neut # (Auto) Lymph # (Auto) [place] # (Auto) Eos # (Auto) Baso # (Auto) Sodium Potassium Chloride Carbon Dioxide Anion Gap BUN Creatinine Est Cr Clr Drug Dosing Est GFR ( Amer) Est GFR (Non-Af Amer) BUN/Creatinine Ratio Glucose POC Glucose 139 H 142 H 283 H Calcium Total Bilirubin AST ALT Alkaline Phosphatase Total Protein Albumin Globulin Albumin/Globulin Ratio Stl C. diff Tox B Gene 10/16/18 10/16/18 10/16/18 07:10 07:29 07:29 WBC 9.28 RBC 4.35 L Hgb 14.2 Hct 38.9 L MCV 89.4 MCH 32.6 MCHC 36.5 H RDW Std Deviation 38.7 RDW Coeff of Ekta 11.9 Plt Count 286 MPV 9.5 Immature Gran % (Auto) 0.1 Neut % (Auto) 83.6 Lymph % (Auto) 10.7 [place] % (Auto) 5.3 Eos % (Auto) 0.2 Baso % (Auto) 0.1 Immature Gran # (Auto) 0.01 Neut # (Auto) 7.76 H Lymph # (Auto) 0.99 L [place] # (Auto) 0.49 Eos # (Auto) 0.02 Baso # (Auto) 0.01 Sodium 137 Potassium 3.9 Chloride 104 Carbon Dioxide 24 Anion Gap 9.0 BUN 17 Creatinine 1.13 Est Cr Clr Drug Dosing 102.6 Est GFR ( Amer) 89.2 Est GFR (Non-Af Amer) 77.0 BUN/Creatinine Ratio 15.2 Glucose 162 H POC Glucose Calcium 9.5 Total Bilirubin 0.5 D AST 42 H ALT 77 Alkaline Phosphatase 59 Total Protein 7.7 Albumin 3.3 L Globulin 4.4 H Albumin/Globulin Ratio 0.8 L Stl C. diff Tox B Gene Negative Cdiff Gene 10/16/18 10/16/18 10/16/18 07:34 12:10 17:13 WBC RBC Hgb Hct MCV MCH MCHC RDW Std Deviation RDW Coeff of Ekta Plt Count MPV Immature Gran % (Auto) Neut % (Auto) Lymph % (Auto) [place] % (Auto) Eos % (Auto) Baso % (Auto) Immature Gran # (Auto) Neut # (Auto) Lymph # (Auto) [place] # (Auto) Eos # (Auto) Baso # (Auto) Sodium Potassium Chloride Carbon Dioxide Anion Gap BUN Creatinine Est Cr Clr Drug Dosing Est GFR ( Amer) Est GFR (Non-Af Amer) BUN/Creatinine Ratio Glucose POC Glucose 153 H 175 H 230 H Calcium Total Bilirubin AST ALT Alkaline Phosphatase Total Protein Albumin Globulin Albumin/Globulin Ratio Stl C. diff Tox B Gene Medications Administered Home Medications amlodipine 5 mg tablet 5 mg PO DAILY #90 tab 08/14/18 [Rx Confirmed 10/13/18] blood sugar diagnostic strips #10 ea 08/15/18 [History Confirmed 10/13/18] glimepiride 2 mg tablet 4 mg PO QAM #180 tab 08/15/18 [History Confirmed 10/13/18] liraglutide 0.6 mg/0.1 mL (18 mg/3 mL) subcutaneous pen injector 1.2 mg SUBCUT DAILY #1 ml 08/15/18 [History Confirmed 10/13/18] metformin 500 mg tablet 1,000 mg PO BID #360 tab 08/15/18 [History Confirmed 10/13/18] pen needle, diabetic 32 gauge x " #10 ea 08/15/18 [History Confirmed 10/13/18] valsartan 320 mg-hydrochlorothiazide 25 mg tablet 1 tab PO DAILY #90 tab 08/15/18 [History Confirmed 10/13/18] metoprolol succinate ER 25 mg tablet,extended release 24 hr 25 mg PO DAILY #90 tab 10/09/18 [Rx Confirmed 10/13/18] Active Medications Al Hydrox/Mg Hydrox/Simethicone (Maalox) 30 ml PO Q6H PRN PRN Reason: Dyspepsia Stop: 11/12/18 12:45 Amlodipine Besylate (Norvasc) 5 mg PO DAILY NESS Stop: 11/13/18 08:59 Last Admin: 10/16/18 08:08 Dose: 5 mg Documented by: Dextrose (Dextrose 50%) 25 - 50 ml IV UD PRN; Protocol PRN Reason: Hypoglycemia Protocol Stop: 11/13/18 09:14 Enoxaparin Sodium (Lovenox) 40 mg SQ Q24H NESS Stop: 11/12/18 15:59 Last Admin: 10/16/18 15:34 Dose: 40 mg Documented by: Glucagon (Glucagen) 1 mg IM UD PRN; Protocol PRN Reason: Hypoglycemia Protocol Stop: 11/13/18 09:14 Glucose (Glucose 40%) 15 - 30 gm PO UD PRN; Protocol PRN Reason: Hypoglycemia Protocol Stop: 11/13/18 09:14 Glucose (Dex4 Glucose) 4 - 8 tabs PO UD PRN; Protocol PRN Reason: Hypoglycemia Protocol Stop: 11/13/18 09:14 Hydrochlorothiazide (Hctz) 25 mg PO DAILY NESS Stop: 11/13/18 08:59 Last Admin: 10/16/18 08:08 Dose: 25 mg Documented by: Piperacillin Sod/Tazobactam (Sod 3.375 gm/ Dextrose) 115 mls @ 28.75 mls/hr IV Q8H NESS; Protocol Stop: 11/24/18 15:59 Last Infusion: 10/16/18 15:30 Dose: Infused Documented by: Ibuprofen (Motrin) 800 mg PO TID PRN PRN Reason: Pain Stop: 11/13/18 14:13 Last Admin: 10/16/18 08:02 Dose: 800 mg Documented by: Insulin Aspart (Novolog Flexpen) 0 units SC ACHS NESS Stop: 11/15/18 07:29 Last Admin: 10/16/18 12:48 Dose: Not Given Documented by: Lactobacillus Acidophilus (Floranex) 4 tab PO TIDM NESS Stop: 11/12/18 12:45 Last Admin: 10/16/18 12:32 Dose: 4 tab Documented by: Magnesium Hydroxide (Milk Of Magnesia) 30 ml PO Q6H PRN PRN Reason: Constipation Stop: 11/12/18 12:45 Metoprolol Succinate (Toprol Xl) 25 mg PO DAILY NESS Stop: 11/13/18 08:59 Last Admin: 10/16/18 08:07 Dose: 25 mg Documented by: Miscellaneous (Order Awaiting Action) 1 ea N/A QS NESS Stop: 11/12/18 15:59 Last Admin: 10/16/18 15:30 Dose: Not Given Documented by: Miscellaneous (Carbohydrates For Hypoglycemia) 15 - 30 gm PO UD PRN PRN Reason: Hypoglycemia Treatment Stop: 11/13/18 09:14 Miscellaneous Information (Consult) 1 ea N/A UD PRN PRN Reason: Consult Stop: 11/12/18 14:18 Multi-Ingredient Cream (Hydrocerin) 1 appln EXT BID NESS Stop: 11/14/18 20:59 Last Admin: 10/16/18 08:08 Dose: 1 appln Documented by: Ondansetron HCl (Zofran) 4 mg IV Q6H PRN PRN Reason: Nausea Stop: 11/12/18 12:45 Polyethylene Glycol (Miralax Powder Packet) 17 gm PO DAILY PRN PRN Reason: Constipation Stop: 11/12/18 12:45 Valsartan (Diovan) 320 mg PO DAILY [facility] Stop: 11/13/18 08:59 Last Admin: 10/16/18 08:07 Dose: 320 mg Documented by: PG Care Time/CCT Total # of Minutes Spent Total Time Spent with Patient: Total time spent is greater than 50% in coordination of care (as documented) at patient's floor/unit and/or counseling patient: (1) Infected abrasion of second toe of left foot Encounter type: initial encounter Qualified Code(s): S90.415A - Abrasion, left lesser toe(s), initial encounter; L08.9 - Local infection of the skin and subcutaneous tissue, unspecified
[2018-10-17] MEDS: PIPERACILLIN/TAZOBACTAM 3.375 GM in DEXTROSE 5% 100 ML IV SCH ×2 (02:18→10:35)
[2018-10-17 06:31] LABS: Basophils # (auto) 0.08 K/uL (0-0.2); Eosinophils # (auto) 0.19 K/uL (0-0.5); Eosinophils % (auto) 2.4 %; Hematocrit (blood only) 37.6 % (42-52); Hemoglobin 13.5 g/dL (14.0-18.0); Immature Granulocytes # (auto) 0.02 K/uL (0.00-0.02); Immature Granulocytes % (auto) 0.3 %; Lymphocytes # (auto) 2.03 K/uL (1.2-3.4); Lymphocytes % (auto) 26.1 %; Mean Corpuscular Hgb Conc 35.9 g/dL (32-36); Mean Corpuscular Volume 90.4 fL (80-100); Mean Platelet Volume 9.1 fL (7.4-10.4); Monocytes # (auto) 0.84 K/uL (0.11-0.59); Monocytes % (auto) 10.8 %; Neutrophils # (auto) 4.63 K/uL (1.4-6.5); Neutrophils % (auto) 59.4 %; Platelet Count 256 K/uL (130-400); RDW Coefficient of Variation 12.1 % (11.5-14.5); RDW Standard Deviation 39.9 fL (36.4-46.3); Red Blood Count 4.16 M/uL (4.7-6.1); White Blood Count 7.79 K/uL (4.8-10.8)
[2018-10-17 06:58] LABS: Albumin Level 3.2 gm/dl (3.4-5.0); BUN Creatinine Ratio 13.9 (10-20); Calcium 8.5 mg/dl (8.5-10.1); Creatinine Clr Calc Pharmacy 82.2 ml/min; Est GFR (African American) 68.3; Est GFR (Non-African American) 58.9; Potassium 3.9 mmol/L (3.5-5.1)
[2018-10-17 06:59] LABS: Albumin Globulin Ratio 0.8 (0.9-2); Bilirubin,Total 0.7 mg/dl (0.2-1); Globulin 3.8 gm/dl (2.5-4.0)
--- NOTE | 2018-10-17 08:20 | Orthopedic Progress Note ---
Date of Service October 17, 2018 Assessment & Plan (1) Osteomyelitis of second toe of left foot: POD 2 s/p Left 2nd toe distal phalanx amputation/ I&D Left second toe. Up with crutches ad la nena; will order cast shoe or ambulation No further surgery needed. Ortho will sign off at this time. Please call with any questions. Subjective Pt awake, alert. Eating breakfast. No complaints this AM. Pain controlled. Hoping to go home soon. Physical Exam Physical Exam: Dressings removed. Suture line intact. No purulence noted. Mild erythema. Wound redressed. Results & Data Vital Signs (Past 12 Hours) Vital Signs Temp Pulse Pulse Resp BP BP Pulse Ox 10/17/18 07:52 36.9 C 59 L 17 112/72 97 10/16/18 23:01 36.4 C L 62 16 111/72 97 Laboratory Results Laboratory Results WBC 7.79 K/uL (4.8-10.8) 10/17/18 06:21 RBC 4.16 M/uL (4.7-6.1) L 10/17/18 06:21 Hgb 13.5 g/dL (14.0-18.0) L 10/17/18 06:21 Hct 37.6 % (42-52) L 10/17/18 06:21 MCV 90.4 fL (80-100) 10/17/18 06:21 MCH 32.5 pg (25-34) 10/17/18 06:21 MCHC 35.9 g/dL (32-36) 10/17/18 06:21 RDW Std Deviation 39.9 fL (36.4-46.3) 10/17/18 06:21 RDW Coeff of Ekta 12.1 % (11.5-14.5) 10/17/18 06:21 Plt Count 256 K/uL (130-400) 10/17/18 06:21 MPV 9.1 fL (7.4-10.4) 10/17/18 06:21 Immature Gran % (Auto) 0.3 % 10/17/18 06:21 Neut % (Auto) 59.4 % 10/17/18 06:21 Lymph % (Auto) 26.1 % 10/17/18 06:21 [place] % (Auto) 10.8 % 10/17/18 06:21 Eos % (Auto) 2.4 % 10/17/18 06:21 Baso % (Auto) 1.0 % 10/17/18 06:21 Immature Gran # (Auto) 0.02 K/uL (0.00-0.02) 10/17/18 06:21 Neut # (Auto) 4.63 K/uL (1.4-6.5) 10/17/18 06:21 Lymph # (Auto) 2.03 K/uL (1.2-3.4) 10/17/18 06:21 [place] # (Auto) 0.84 K/uL (0.11-0.59) H 10/17/18 06:21 Eos # (Auto) 0.19 K/uL (0-0.5) 10/17/18 06:21 Baso # (Auto) 0.08 K/uL (0-0.2) 10/17/18 06:21 ESR 42 mm/hr (0-14) H 10/13/18 10:15 PT 11.0 Seconds (9.0-12.0) 10/14/18 06:55 INR 1.1 (0.9-1.1) 10/14/18 06:55 Sodium 140 mmol/L (136-145) 10/17/18 06:21 Potassium 3.9 mmol/L (3.5-5.1) 10/17/18 06:21 Chloride 107 mmol/L (98-107) 10/17/18 06:21 Carbon Dioxide 26 mmol/L (21-32) 10/17/18 06:21 Anion Gap 7.0 (3-11) 10/17/18 06:21 BUN 20 mg/dl (7-18) H 10/17/18 06:21 Creatinine 1.41 mg/dl (0.6-1.4) H 10/17/18 06:21 Est Cr Clr Drug Dosing 82.2 ml/min 10/17/18 06:21 Est GFR ( Amer) 68.3 10/17/18 06:21 Est GFR (Non-Af Amer) 58.9 10/17/18 06:21 BUN/Creatinine Ratio 13.9 (10-20) 10/17/18 06:21 Glucose 156 mg/dl (70-99) H 10/17/18 06:21 POC Glucose 158 (70-99) H 10/16/18 21:01 Estimat Average Glucose 114 mg/dl 10/13/18 10:15 Hemoglobin A1c 5.6 % (4.5-5.6) 10/13/18 10:15 Calcium 8.5 mg/dl (8.5-10.1) 10/17/18 06:21 Total Bilirubin 0.7 mg/dl (0.2-1) 10/17/18 06:21 AST 79 U/L (15-37) H 10/17/18 06:21 ALT 104 U/L (12-78) H 10/17/18 06:21 Alkaline Phosphatase 53 U/L (45-117) 10/17/18 06:21 C-Reactive Protein 11.00 mg/dl (0-0.29) H 10/13/18 10:15 Total Protein 7.0 gm/dl (6.4-8.2) 10/17/18 06:21 Albumin 3.2 gm/dl (3.4-5.0) L 10/17/18 06:21 Globulin 3.8 gm/dl (2.5-4.0) 10/17/18 06:21 Albumin/Globulin Ratio 0.8 (0.9-2) L 10/17/18 06:21 Folate 17.06 ng/ml (>5.38) 10/13/18 15:19 Procalcitonin 0.05 ng/ml (0-0.5) 10/13/18 10:15 Stl C. diff Tox B Gene Negative Cdiff Gene (Neg) 10/16/18 07:10
[2018-10-17] MEDS: LACTOBACILLUS ACIDOPHILUS (FLORANEX) TAB PO SCH ×2 (08:59→12:27)
[2018-10-17] MEDS: VALSARTAN 80 MG TAB PO SCH (09:00)
[2018-10-17] MEDS: AMLODIPINE BESYLATE 5 MG TAB PO SCH (09:01)
[2018-10-17] MEDS: METOPROLOL SUCC 25MG EXT REL TAB PO SCH (09:01)
[2018-10-17] MEDS: EUCERIN CR 120 GM JAR EXT SCH (09:01)
[2018-10-17] MEDS: hydroCHLOROthiazide 25 MG TAB PO SCH (09:02)
[2018-10-17] MEDS: INSULIN ASPART 100 UNITS/ML 3 ML PEN SC SCH ×2 (09:12→13:12)
--- NOTE | 2018-10-17 10:11 | Discharge Summary ---
Date of Service October 17, 2018 Admission HPI Per Admitting Provider Mr. Lofton is a 48yo with a PMhx significant for DMII and HTN who presents today for a nonhealing left second toe. States about a week ago he dropped an instrument on his foot and has noticed the pain, redness, and swelling with drainage since then. Has been taking OTC Aleve for pain relief. Denies ever having associated fevers, chills or night sweats. States the drainage has been bloody or clear to yellow. States that it is easier to wear shoes. Normally has numbness in his feet due to his DM, but has not noted any tingling. Has been able to wear shoes and ambulate. PMHX: DMII, HTN PSH: Surgery on his bicep tendon 10years ago Fam Hx: Mother 89, alive DMII. Dad, passed, CV issues. Allergies: NKDA Social Hx: Drinks 2 cases of 24pack 12oz beer every week. States he quit drinking around this time last year but has since restarted. Last drink was last night. Quit smoking about 20yrs ago after smoking 1ppd for about 10 years. No recreational drug use. Lives at home with 22yo son in 2 story home. His bedroom is on the first floor however. Works construction. ED Course: XR of foot shows fracture with soft tissue edema and gas. Started on Zosyn, Vancomycin and Clindamycin in the ED out of concern for gas gangrene or necrotizing fasciitis. Admission Exam Per Admitting Provider Constitutional: WD/WN, vitals as above Eyes: PERRL, conjunctivae normal, anicteric sclerae ENMT: external ear and nose normal, oropharynx normal Respiratory: normal respiratory effort, lungs clear to auscultation Cardiovascular: RRR, no murmur, no edema Extremities: no calf tenderness Gastrointestinal (Abdomen): normal bowel sounds, soft, nontender, no hepatosplenomegaly Musculoskeletal: Extremities: + lower extremity abnormal to inspection (Leftsecond toe red, swollen, tender to palpation with visible drainage.) Right (on right heel, medially, is a burgeoning lesion, red, atrophic but not ulcerated yet.) Principal Diagnosis Left toe oseomylitis Discharge Exam General: Alert, oriented. No acute distress HEENT: NC/AT, PERRLA, EOMI, oropharynx moist. Chest: Nontender to palpation. CV: RRR, Normal s1, s2. No murmurs appreciated Resp: Breath sounds clear bilaterally, no increased effort of breathing. No crackles/rhonchi/rales. Abdomen: Soft, nontender, nondistended. No guarding. No organomegaly appreciated. Extremities: No calf tendeness bilaterally. Left foot bandaged with no visible drainage or bleeding. Per orthopedics, 10/17 Exam: PE: Dressings removed. Suture line intact. No purulence noted. Mild erythema. Wound redressed. Discharge Data Allergies Allergy/AdvReac Type Severity Reaction Status Date / Time No Known Allergies Allergy Unverified 10/13/18 10:44 Consultations 10/13/18 11:26 ED Decision to Admit Stat 10/13/18 12:46 Consult Orthopedic Surgery Routine Procedures Performed Operation Date: 10/15/18 10:20 Actual Procedures p Left Incision and Drainage second Toe, Distal Phalanx Amputation(Left) - Emile Franklin DO Ordered Studies 10/14/18 12:19 arterial duplex [facility] Routine Hospital Course (1) Osteomyelitis of second toe of left foot: Mr. Lofton is a 48yo male with a PMHx significant for DMII and HTN who presented for a nonhealing left second toe. Stated about a week prior to presentation he dropped an instrument on his foot and had noticed the pain, redness, and swelling with drainage since then. Was admitted on Oct 13 and discharged on Oct 17, 2018. Left toe fracture/cellulitis and osteomyelitis -Likely caused from infected injury, with diabetic status and poor wound healing from excessive alc use. -arterial dopplers ordered to confirm suspected PVD-showed suggestion of stenoses in the dorsalis pedis arteries bilaterally. -Toe abscess was incised and drained after nail plate removed. repeat I and D on 10/15 -continued Zosyn. d/bassam clindamycin and vancomycin- less likely MRSA given no hx of recent hosp, location of lesion, etc. - wound culture- grew staph aureus. -discharged with Keflex 500mg BID for 14 days. Alcohol use ds -Given pt's level of alcohol use and Hx obtained, mild concern for withdrawal. Pt states that he has abstained from drinking recently for 30days+ without symptoms. -on discharge had NOT experienced any withdrawal symptoms. -counseled on withdrawal symptoms and what to look for should they start. -liver enzymes reassuring, currently normal and has been on downtrend. HTN -continue home meds DMII -HgbA1c of 5.6 while admitted. -ISS while admitted. Restarted on home meds after discharge. Total Time Total Time Spent Total Time Spent (In Minutes): 60 Discharge Plan Discharge Items Patient Disposition: Home - Self-Care Reason For Visit: FOOT CELLULITIS, CONCERN OSTEOMYELITIS Discharge Diagnosis: Left toe osteomyelitis Discharge Goals: Decrease discomfort Activity: Per 'Additional Instructions' section Non-emergency contact: Primary Care Provider Call non-emergency contact if: your pain is not controlled and you have a fever Follow-up/Referrals: Kiki Mcdonald CRNP [Primary Care Provider] - 10/25/18 11:00 am (Please, follow up at DANICA Mcdonald's office with her associate, Judie Clement PA-C, on October 25 at 11:00 am. *If you need to change this appointment, call the office at [phone].) Diet: Carb Consistent or DM2 Addtl Provider Instructions: Mr. Lofton, you were admitted because you had an infection of your left second toe after it was fractured. We treated you with IV antibiotics for 3 days and are discharging you with 4 more days of an oral antibiotic called Keflex. -Please take 1 tablet twice a day of the Keflex for the next 14 days. -Please follow the activity and special care recommendations listed below. -Please call [place] [facility] at to have an appointment set up with Dr. Franklin for followup. -Please follow up with your primary care doctor in the next week as well. -Please continue taking your home diabetic meds as excellent control of your blood sugar helps significantly with your post op wound healing. -Your liver enzyme levels have decreased considerably; keep up the good work of decreasing your alcohol intake! -Please continue to stay hydrated. -Should you develop the sudden onset of fevers, chills, night sweats, or you find that your pain is not weel controlled, please seek medical attention. ACTIVITY RECOMMENDATIONS: Limitations: Heel weight bearing only if able to tolerate. SPECIAL CARE INSTRUCTIONS: * Some drainage onto the dressing is normal and is no cause for alarm. * Some swelling is natural especially after walking. * When resting, keep your foot elevated above the level of your heart. * Call [facility] if you notice: -Increased drainage -Fever over 101 degrees F -Severe constant pain BANDAGE: * Daily dressing changes. Keep wound covered until seen back in the office. * Keep bandage/cast dry at all times. * You may get the wound wet in 2 days if you have only spotty drainage. Do not soak it. No tub baths. No direct shower pressure on the wound. FOLLOW UP VISIT WITH DR. FRANKLIN If appointment is not already scheduled: Please call [facility] to schedule a follow-up appointment for 10 days from the day of your surgery with Dr. Franklin at . Prescriptions: New cephalexin 500 mg capsule 500 mg PO BID 14 Days Qty: 28 RF: 0 Continued amlodipine 5 mg tablet 5 mg PO DAILY Qty: 90 RF: 3 metoprolol succinate 25 mg tablet extended release 24 hr 25 mg PO DAILY Qty: 90 RF: 1 glimepiride 2 mg tablet 4 mg PO QAM Qty: 180 RF: 0 metformin 500 mg tablet 1,000 mg PO BID Qty: 360 RF: 0 OneTouch Verio strip .ROUTE .MEDSUPPLY Qty: 10 RF: 0 pen needle, diabetic 32 gauge x 5/32" needle .ROUTE .MEDSUPPLY Qty: 10 RF: 0 valsartan-hydrochlorothiazide 320-25 mg tablet 1 tab PO DAILY Qty: 90 RF: 0 liraglutide 0.6 mg/0.1 mL (18 mg/3 mL) pen injector 1.2 mg subcut DAILY Qty: 1 RF: 0 Stand-Alone Forms: [facility]/Other Patient Handouts: Diabetes Healthy Meals, Diabetes Keep Feet Healthy Discharge Orders: Discharge Order (Routine); Ordered 10/17/18 Ordered By: Karime Payan Admission Data Admit Date/Time: 10/13/18 11:46 Attending Provider: Mary Laurne Admit Provider: Clark Romero Primary Care Provider: Kiki Mcdonald I Other Providers: Clark Romero ; Emile Franklin Service: Medical Other Interventions: Discharge Summary Assessment (RN) Last Done: 10/17/18 11:55 DC Date/Time DO NOT enter until pt leaves facility: 10/17/18 13:45 Supervising Physician Co-Signing Physician Notes Resident Physician Supervision Note: I independently interviewed and examined the patient and verified the verduzco history and physical, reviewed labs and image studies, discussed the case with the resident Dr. Payan and agree with the findings and care plan. Time spent in discharge 35 min Resident Activity Tracking Resident Involvement: Resident Care Provided Care Provided: Adult Hospital Medicine
== END 2018-10-17 13:45 | disposition home or self-care (01) | DRG 617 ==
LOC: ED 09:13 → SUATTDRO 11:46 → 3N 11:46
DX: Z79.84 Long term (current) use of oral hypoglycemic drugs; I10 Essential (primary) hypertension; Z83.3 Family history of diabetes mellitus; Y99.0 Civilian activity done for income or pay; S92.532B Displaced fracture of distal phalanx of left lesser toe(s), initial encounter for open fracture; Z79.899 Other long term (current) drug therapy; E11.69 Type 2 diabetes mellitus with other specified complication; L03.032 Cellulitis of left toe; E11.51 Type 2 diabetes mellitus with diabetic peripheral angiopathy without gangrene; F17.220 Nicotine dependence, chewing tobacco, uncomplicated; F10.10 Alcohol abuse, uncomplicated; L02.612 Cutaneous abscess of left foot; M86.172 Other acute osteomyelitis, left ankle and foot; Y93.H3 Activity, building and construction; B95.61 Methicillin susceptible Staphylococcus aureus infection as the cause of diseases classified elsewhere; W20.8XXA Other cause of strike by thrown, projected or falling object, initial encounter